=== PATIENT | male | born 1950 | race Caucasian/White ===

== ENCOUNTER 2024-03-09 10:37 | Outpatient (AMB) | payer MEDICARE, SELFPAY ==
--- NOTE | 2024-03-09 10:44 | MHC.PC.OV ---
Vital Signs 03/09/24 10:56 Height 5 ft 8.11 in Weight 202 lb 8 oz BMI 30.7 BP 118/68 Blood Pressure Location Lt brachial Position Sitting Respiration 26 H Pulse 91 Pulse Source Pulse Oximeter Temp 97.9 F Temp Source Oral Pulse Oximetry (%) 93 Oxygen Delivery Method Room Air Intake Visit Reasons: manager net appointment Intake Note: New patient visit. Requesting refill on on medication to Amy. Dr Vaughan was supposed to refill Breo back in January and he never received it. Mortgage Accounting Clerk Required: No Allergies No Known Allergies [No Known Allergies*] Allergy (Verified 03/09/24 10:44) Tobacco use date assessed: 03/09/24 Fall risk assessment: 1 Fall in past year Last assessed Fall Risk: 03/09/24 Dental Screening Dental Screen Date: 03/09/24 Did you have a dental visit in the last 12 months?: No Did you have a dental problem in the last 6 months where you did not have access to dental care?: No Was dental information given to patient?: Patient declined (doesnt have teeth) HPI HPI Comments History of Present Illness Details The patient is a 73-year-old male with a past history hypertension, paroxysmal atrial fibrillation, depression and anxiety, dyslipidemia, COPD with emphysema complicated by chronic hypoxemic respiratory failure on 2 L O2, on nonischemic cardiomyopathy, chronic daily diarrhea and von Hippel-Lindau syndrome who presents for follow-up GI: In the setting of a 6 month history of diarrhea in the patient was hospitalized and underwent an extensive workup which included a CT abdomen and pelvis which showed pneumatosis colon and 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 He underwent MRCP and GI was consulted. MRCP showed focal biliary dilation. No mass lesion was delineated. Ductal dilation isolated segment of the left lower liver with some debris within the left lobe. LFTs unremarkable. Recommended against ERCP by GI. Colonoscopy with normal pathology and biopsy. Saw Dr Barron-repeated MRI-no interval change CV: Follows with [facility]. On eliquis, lipitor 40 mg daily. Denies chest pain, shortness breath 9 nephro: CKD stage 3 Pulmonary: Chronic hypoxemic respiratory failure. On his O2 today though at last visit reported some noncompliance with oxygen therapy at home. He continued free of BH: On sertraline, mirtazapine and hydroxyzine as needed. [facility] Colon[facility] 2022 ROS CONSTITUTIONAL: Denies weight loss, fever and chills. HEENT: Denies changes in vision and hearing. RESPIRATORY: Denies SOB and cough. CV: Denies palpitations and CP GI: Denies abdominal pain, nausea, vomiting and diarrhea. : Denies dysuria and urinary frequency. MSK: Denies new myalgia and joint pain. SKIN: Denies rash and pruritus. NEUROLOGICAL: Denies headache PSYCHIATRIC: Denies recent changes in mood. PHYSICAL EXAM: GENERAL: Alert and oriented x 3. NAD EYES: EOMI. Anicteric. HENT: Moist mucous membranes. No scleral icterus. No cervical lymphadenopathy. LUNGS: Clear to auscultation bilaterally. CARDIOVASCULAR: Regular rate and rhythm. No murmur. No JVD. ABDOMEN: Soft, non-tender +bs EXTREMITIES: No edema. Non-tender. SKIN: No rashes or lesions. Warm. NEUROLOGIC: No focal neurological deficits. CN II-XII grossly intact PSYCHIATRIC: Cooperative. Appropriate mood and affect [facility] Medical History VHL (von Hippel-Lindau syndrome) Smoking hx Seasonal allergies Obesity, Class I, BMI 30.0-34.9 (see actual BMI) Macular degeneration Emphysema lung Dilation of common bile duct Depression Chronic kidney disease Afib Anxiety Abnormal gall bladder diagnostic imaging Surgical History H/O colonoscopy Social History Housing: Apartment Patient Tobacco Use Status: Former Tobacco user Cigarette Packs Per Day: 3 Years Smoked: 50 e-Cigarette/Vaping Use: Never Used Second Hand Smoke Exposure: No service: No Current occupational status: retired Cognitive needs: No Hearing needs: No Vision needs: Yes (legally blind) Questionnaire PHQ-9 Over the last 2 weeks, how often have you been bothered by any of the following problems? 1. Little interest or pleasure in doing things: not at all 2. Feeling down, depressed, or hopeless: several days 3. Trouble falling or staying asleep, or sleeping too much: not at all 4. Feeling tired or having little energy: nearly every day 5. Poor appetite or overeating: not at all 6. Feeling bad about yourself - or that you are a failure or have let yourself or your family down: not at all 7. Trouble concentrating on things, such as reading the newspaper or watching television: several days 8. Moving or speaking so slowly that other people could have noticed. Or the opposite - being so fidgety or restless that you have been moving around a lot more than usual: not at all 9. Thoughts that you would be better off or of hurting yourself in some way: not at all Total score: 5 Depression Screening Interpretation: Positive Depression Screening Follow-up: Existing condition Depression Screening Done: Yes 31757 - PHQ-9 Billing: Yes Source: Developed by Drs. Néstor Slaughter, Isa Cullen, Kraeem Alejandre and colleagues, with an educational elma from [employer]. Thrive Questionnaire Date Thrive assessed: 03/09/24 I am a: Patient What is your living situation today?: I have a steady place to live Within the past 12 months, did the food you bought not last and you didn't have the money to get more?: Never true Within the past 12 months, did you worry whether your food would run out before you got money to buy more?: Never true Do you have trouble paying for medicines?: Yes Do you have trouble getting transportation to medical appointments?: No Do you have trouble paying your heating and electricity bill?: No Do you have trouble taking care of your child, family member or friend?: No Do you have trouble with day-to-day activities such as bathing, preparing meals, shopping, managing finances, etc.?: No Are you currently unemployed and looking for a job?: I choose not to answer this question Are you interested in more education?: No Please select the resources that you would like help with: None Currently or been in a relationship where the following occur: No concerns reported THRIVE Score: 0 AUDIT C Alcohol Use Questionnaire (AUDIT-C) 1. How often do you have a drink containing alcohol?: Never (past quit about 1987) 3. How often do you have six or more drinks on one occasion?: Never Total Score: 0 JAMES-7 AMB Questionnaire JAMES-7 Date JAMES - 7 assessed: 03/09/24 Feeling nervous, anxious, or on edge: 1 = Several days Not being able to stop or control worryin = Not at all Worrying too much about different things: 0 = Not at all Trouble relaxin = Not at all Being so restless that it is hard to sit still: 0 = Not at all Becoming easily annoyed or irritable: 0 = Not at all Feeling afraid as if something awful might happen: 0 = Not at all Total JAMES-7 score (0-4 normal; 5-9 mild; 10-14 moderate; 15-21 severe): 1 Source: Developed by Drs. Néstor Slaughter, Isa Cullen, Kareem Alejandre and colleagues, with an educational elma from [employer]. JAMES-7 Assessment Billing JAMES-7 Assessment Tool: JAMES-7 Assessment 56443 Physical exam (Primary Care) Vital Signs: Last Vital Signs Temp 97.9 F 03/09/24 10:56 Pulse 91 03/09/24 10:56 Resp 26 H 03/09/24 10:56 BP 118/68 03/09/24 10:56 Pulse Ox 93 03/09/24 10:56 Oxygen Delivery Method Room Air 03/09/24 10:56 BMI result Body Mass Index 30.7 Tobacco/Smoking Status: Tobacco use Status Tobacco use date assessed 03/09/24 03/09/24 11:04 Patient Tobacco Use Status Former Tobacco user 03/09/24 11:35 e-Cigarette/Vaping Use Never Used 03/09/24 11:35 PHQ-9: PHQ-9 Score PHQ-9: Total score 5 03/12/24 09:41 Depression Screening Interpretation: Positive Depression Screening Follow-up: Existing condition Thrive Assessment: Date of Thrive Assessment Date Thrive assessed 03/09/24 03/09/24 11:04 Currently or been in a relationship where the following occur: No concerns reported Coding Level of Care Code Est Pt Level 5 (80353) Complex EM visit Add On G2211 Diagnoses Anxiety F41.9 Paroxysmal atrial fibrillation I48.0 Atrial fibrillation type: paroxysmal Pulmonary emphysema, unspecified emphysema type J43.9 Emphysema type: unspecified VHL (von Hippel-Lindau syndrome) Q85.83 Additional Codes JAMES-7 Assessment Billing - JAMES-7 Assessment Tool: JAMES-7 Assessment 77514 ([id number]) Time Spent (min) 55 Assessment & Plan Assessment & Plan (1) Anxiety: Code(s): F41.9 - Anxiety disorder, unspecified Category: Medical Plan: stable on current medications (2) Afib: Code(s): I48.91 - Unspecified atrial fibrillation Category: Medical Qualifiers: Atrial fibrillation type: paroxysmal Qualified Code(s): I48.0 - Paroxysmal atrial fibrillation Plan: Continue follow up with cardiology. No chest pain. (3) Emphysema lung: Code(s): J43.9 - Emphysema, unspecified Category: Medical Qualifiers: Emphysema type: unspecified Qualified Code(s): J43.9 - Emphysema, unspecified Plan: No exacerbation. Follows with pulmonary (4) VHL (von Hippel-Lindau syndrome): Code(s): Q85.83 - Von Hippel-Lindau syndrome Category: Medical Plan: Stopped follow up with [facility]. Orders: Orders Complete Blood Count Auto Diff 03/09/24 F32.A - Depression, unspecified, F41.9 - Anxiety disorder, unspecified, I48.91 - Unspecified atrial fibrillation, N18.9 - Chronic kidney disease, unspecified Lipid Panel 03/09/24 F32.A - Depression, unspecified, F41.9 - Anxiety disorder, unspecified, I48.91 - Unspecified atrial fibrillation, N18.9 - Chronic kidney disease, unspecified TSH reflex Free T4 03/09/24 F32.A - Depression, unspecified, F41.9 - Anxiety disorder, unspecified, I48.91 - Unspecified atrial fibrillation, N18.9 - Chronic kidney disease, unspecified Comprehensive Met. Panel 03/09/24 F32.A - Depression, unspecified, F41.9 - Anxiety disorder, unspecified, I48.91 - Unspecified atrial fibrillation, N18.9 - Chronic kidney disease, unspecified Hemoglobin A1c 03/09/24 F32.A - Depression, unspecified, F41.9 - Anxiety disorder, unspecified, I48.91 - Unspecified atrial fibrillation, N18.9 - Chronic kidney disease, unspecified Medications: New Eliquis (apixaban) 5 mg PO BID 180 tabs 3RF NS lisinopril 10 mg PO DAILY 90 tabs 3RF metoprolol succinate ER 50 mg PO DAILY 90 tabs 3RF mirtazapine 30 mg PO BEDTIME 90 tabs 3RF sertraline 100 mg PO DAILY 90 tabs 3RF nnhtrelcilf-onpjqweoc-hvhupywx 200-62.5-25 mcg (Trelegy Ellipta) 1 inh inhalation DAILY 3 ea 3RF Ventolin HFA 90 mcg/actuation (albuterol sulfate) 2 puffs inhalation Q4H 18 grams 3RF 90 days NS atorvastatin 40 mg PO DAILY 90 tabs 3RF fluticasone propionate 50 mcg/actuation 2 sprays intranasal DAILY 3 ea 3RF 90 days hydroxyzine HCl 50 mg PO BID PRN 90 tabs 3RF nausea and vomiting baclofen 10 mg PO BID PRN 180 tabs 3RF back pain
[2024-03-09 10:56] VITALS: BP 118/68; PULSE 91; RESP 26; TEMP 36.6; O2SAT 93; BMI 30.7
== END 2024-03-09 11:43 | disposition home or self-care (01) ==
PROVIDERS: PCP Internal Medicine; Visit Provider Internal Medicine
DX: I48.0 Paroxysmal atrial fibrillation (principal); F41.9 Anxiety disorder, unspecified; J43.9 Emphysema, unspecified; Q85.83 Von Hippel-Lindau syndrome

== ENCOUNTER → 2024-03-09 10:37 | Outpatient (BNVA) | payer MEDICARE, OTHER, SELFPAY | PROVIDERS: PCP Internal Medicine; Visit Provider Internal Medicine | DX: F41.9 Anxiety disorder, unspecified (principal); F32.A Depression, unspecified; I48.0 Paroxysmal atrial fibrillation; J43.9 Emphysema, unspecified; Q85.83 Von Hippel-Lindau syndrome; Z79.899 Other long term (current) drug therapy | CPT/HCPCS: 96127; 99212 ==

== ENCOUNTER 2024-03-09 12:10 | Outpatient (REF) | payer MEDICARE, SELFPAY ==
[2024-03-09 14:21] LABS: MANUAL DIFF FLAG NO
[2024-03-09 14:33] LABS: Basophils Percent Auto 0.6 % (0-2); Eosinophils Absolute Auto 0.2 X10*3/uL (0.0-0.4); Eosinophils Percent Auto 2.6 % (0-4); Hematocrit 48.7 % (42.0-52.0); Hemoglobin 15.6 g/dl (14.0-18.0); Imm Gran Abs Auto 0.04 X10*3/uL (0.00-0.03); Imm Gran Pct Auto 0.6 % (0.0-0.4); Lymphocytes Absolute Auto 0.9 X10*3/uL (1.2-4.9); Lymphocytes Percent Auto 12.8 % (20-40); Mean Corpuscular Volume 87.3 fL (80.0-98.0); Mean Platelet Volume 12.6 fL (9.4-12.4); Monocytes Absolute Auto 0.9 X10*3/uL (0.1-1.2); Monocytes Percent Auto 13.8 % (2-11); Neutrophils Absolute Auto 4.6 x10*3/uL (2.0-8.3); Neutrophils Percent Auto 69.6 % (45-73); Platelet Count 155 X10*3/uL (160-400); Red Blood Count 5.58 X10*6/uL (4.60-5.80); Red Cell Distribution Width 15.6 % (11.0-16.0); White Blood Count 6.7 X10*3/uL (4.8-10.8)
[2024-03-09 14:39] LABS: Estimated Average Glucose 123 mg/dL; Hemoglobin A1C 163.1175 umol/L; Hemoglobin A1c % 5.9 % (<6.0); Total Hemoglobin (HGBA1C) 3948.7998 umol/L
[2024-03-09 14:51] LABS: Alanine Aminotransferase 19 U/L (0-40); Albumin Level 4.7 g/dL (3.5-5.0); Alkaline Phosphatase 113 U/L (39-117); Anion Gap 16 (12-20); Aspartate Amino Transferase 21 U/L (5-37); Bilirubin Total 0.5 mg/dL (0.0-1.0); Blood Urea Nitrogen 41 mg/dL (9-16); Calcium 10.3 mg/dL (8.4-10.2); Carbon Dioxide 26 mmol/L (22-29); Chloride 105 mmol/L (96-108); Cholesterol 122 mg/dL (<200); Estimated Glomerular Filt Rate 33; Glucose Random 112 mg/dL (60-115); HDL Cholesterol 32 mg/dL (>40); LDL Cholesterol Calculated 47 mg/dL (<100); Potassium 5.3 mmol/L (3.3-5.1); Sodium 142 mmol/L (135-145); Total Protein 8.2 g/dL (6.5-8.0); Triglycerides 216 mg/dL (<150)
[2024-03-09 15:01] LABS: TSH reflex Free T4 2.21 uIU/mL (0.32-4.0)
== END 2024-03-09 12:11 | disposition home or self-care (01) ==
LOC: HO.WFDLDS 12:10
PROVIDERS: Visit Provider Internal Medicine
DX: I48.91 Unspecified atrial fibrillation (principal); F32.A Depression, unspecified; F41.9 Anxiety disorder, unspecified; N18.9 Chronic kidney disease, unspecified
CPT/HCPCS: 36415; 80053; 80061; 83036; 84443; 85025; 96127; 99212

== ENCOUNTER 2024-08-10 10:20 | Outpatient (AMB) | payer MEDICARE, MEDICAID, SELFPAY ==
--- NOTE | 2024-08-10 10:49 | A.OFFPC_ITS ---
Vital Signs 08/10/24 11:06 08/10/24 11:09 Height 5 ft 8.11 in BP 70/48 L 80/56 L Blood Pressure Location Rt brachial Lt brachial Position Sitting Sitting Respiration 22 H Pulse 77 Pulse Source Pulse Oximeter Pulse Oximetry (%) 98 Oxygen Delivery Method Room Air Intake Visit Reasons: awv Intake Note: Medical annual wellness. Had a CT lung scan on 08/03/24 at [facility] Delivery Department Supervisor Required: No Allergies No Known Allergies [No Known Allergies*] Allergy (Verified 08/10/24 10:49) Medication List - Last Reconciled 08/22/24 by Nita Harrison MD atorvastatin 40 mg PO DAILY baclofen 10 mg PO BID PRN doxycycline hyclate 100 mg PO BID Eliquis (apixaban) 5 mg PO BID NS fluticasone propionate 50 mcg/actuation 2 sprays intranasal DAILY 90 days leakiqkzufa-geehqrkxm-bunqcbca 200-62.5-25 mcg (Trelegy Ellipta) 1 inh inhalation DAILY hydroxyzine HCl 50 mg PO BID PRN lisinopril 10 mg PO DAILY metoprolol succinate ER 50 mg PO DAILY mirtazapine 30 mg PO BEDTIME sertraline 150 mg (1.5 x 100 mg) PO DAILY Ventolin HFA 90 mcg/actuation (albuterol sulfate) 2 puffs inhalation Q4H 90 days NS vitamins A,C,F-jiux-dbwqya 4,296 mcg-226 mg-90 mg (PreserVision AREDS) 1 cap PO BID Tobacco use date assessed: 08/10/24 Fall risk assessment: No Falls in past year Last assessed Fall Risk: 08/10/24 Dental Screening Dental Screen Date: 03/09/24 HPI HPI Comments History of Present Illness Details The patient is a 73-year-old male with a past history hypertension, paroxysmal atrial fibrillation, depression and anxiety, dyslipidemia, COPD with emphysema complicated by chronic hypoxemic respiratory failure on 2 L O2, on nonischemic cardiomyopathy, chronic daily diarrhea and von Hippel-Lindau syndrome who presents for [facility] GI: In the setting of a 6 month history of diarrhea in 2022 the patient was hospitalized and underwent an extensive workup which included a CT abdomen and pelvis which showed pneumatosis colon and 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 He underwent MRCP and GI was consulted. MRCP showed focal biliary dilation. No mass lesion was delineated. Ductal dilation isolated segment of the left lower liver with some debris within the left lobe. LFTs unremarkable. Recommended against ERCP by GI. Colonoscopy with normal pathology and biopsy. Saw Dr Barron-repeated MRI-no interval change CV: Follows with [facility] Cardiology. On eliquis, lipitor 40 mg daily, lisinopril, toprol. Denies chest pain, shortness breath. Nephro: CKD stage 3 Pulmonary: Chronic hypoxemic respiratory failure on 02 therapy. On trelegy Follows with Dr Vaughan. BH: On sertraline, mirtazapine and hydroxyzine as needed. Follows with [facility] Colonoscopy 2022 HRA declined to fully complete Care team reviewed Meds reconciled ROS CONSTITUTIONAL: Denies weight loss, fever and chills. HEENT: Denies changes in vision and hearing. RESPIRATORY: Denies SOB and cough. CV: Denies palpitations and CP GI: Denies abdominal pain, nausea, vomiting and diarrhea. : Denies dysuria and urinary frequency. MSK: Denies new myalgia and joint pain. SKIN: Denies rash and pruritus. NEUROLOGICAL: Denies headache PSYCHIATRIC: Denies recent changes in mood. PHYSICAL EXAM: GENERAL: Alert and oriented x 3. NAD EYES: EOMI. Anicteric. HENT: Moist mucous membranes. No scleral icterus. No cervical lymphadenopathy. LUNGS: Coarse bs right, scattered wheeze b/l CARDIOVASCULAR: Regular rate and rhythm. No murmur. No JVD. ABDOMEN: Soft, non-tender +bs EXTREMITIES: No edema. Non-tender. SKIN: No rashes or lesions. Warm. NEUROLOGIC: No focal neurological deficits. CN II-XII grossly intact PSYCHIATRIC: Cooperative. Appropriate mood and affect [facility] Medical History VHL (von Hippel-Lindau syndrome) Smoking hx Seasonal allergies Obesity, Class I, BMI 30.0-34.9 (see actual BMI) Macular degeneration Emphysema lung Dilation of common bile duct Depression Chronic kidney disease Afib Anxiety Abnormal gall bladder diagnostic imaging Surgical History H/O colonoscopy Social History Housing: Apartment Alcohol intake: current Patient Tobacco Use Status: Former Tobacco user Cigarette Packs Per Day: 3 Years Smoked: 50 e-Cigarette/Vaping Use: Never Used Second Hand Smoke Exposure: No service: No Current occupational status: retired Cognitive needs: No Hearing needs: No Vision needs: Yes (legally blind) Questionnaire Thrive Questionnaire Date Thrive assessed: 08/10/24 JAMES-7 AMB Questionnaire JAMES-7 Date JAMES - 7 assessed: 03/09/24 Source: Developed by Drs. Néstor Slaughter, Isa Cullen, Kareem Alejandre and colleagues, with an educational elma from [employer]. Physical exam (Primary Care) Vital Signs: Last Vital Signs Pulse 77 08/10/24 11:06 Resp 22 H 08/10/24 11:06 BP 80/56 L 08/10/24 11:09 Pulse Ox 98 08/10/24 11:06 Oxygen Delivery Method Room Air 08/10/24 11:06 Tobacco/Smoking Status: Tobacco use Status Tobacco use date assessed 08/10/24 08/10/24 11:05 Patient Tobacco Use Status Former Tobacco user 08/10/24 10:50 e-Cigarette/Vaping Use Never Used 08/10/24 10:50 Thrive Assessment: Date of Thrive Assessment Date Thrive assessed 08/10/24 08/10/24 10:50 Coding Level of Care Code Est Pt Level 4 (56777) Diagnoses Medicare annual wellness visit, subsequent Z00.00 VHL (von Hippel-Lindau syndrome) Q85.83 Paroxysmal atrial fibrillation I48.0 Atrial fibrillation type: paroxysmal Pulmonary emphysema, unspecified emphysema type J43.9 Emphysema type: unspecified Assessment & Plan Assessment & Plan (1) Medicare annual wellness visit, subsequent: Code(s): Z00.00 - Encounter for general adult medical examination without abnormal findings Category: Medical Plan: HRA provided to patient he did not complete Blood pressure soft today-advised hydration at home. EKG was performed and reassuring. He is feeing well. Advised if does not feel well then go to ER for evaluation Care team reviewed. medications reconciled (2) VHL (von Hippel-Lindau syndrome): Code(s): Q85.83 - Von Hippel-Lindau syndrome Category: Medical Plan: Previously following with specialist in [place] but declines further follow up there. Continue follow up cardiology, pulmonary (3) Afib: Code(s): I48.91 - Unspecified atrial fibrillation Category: Medical Qualifiers: Atrial fibrillation type: paroxysmal Qualified Code(s): I48.0 - Paroxysmal atrial fibrillation Plan: Rate controlled. continues AC (4) Emphysema lung: Code(s): J43.9 - Emphysema, unspecified Category: Medical Qualifiers: Emphysema type: unspecified Qualified Code(s): J43.9 - Emphysema, unspecified Plan: Concern for right PNA. Doxycycline send. Continue rsp meds and follow up Orders: Orders TSH reflex Free T4 08/10/24 I48.0 - Paroxysmal atrial fibrillation, N18.9 - Chronic kidney disease, unspecified, F41.9 - Anxiety disorder, unspecified, Q8 5.83 - Von Hippel-Lindau syndrome, J43.9 - Emphysema, unspecified Complete Blood Count Auto Diff 08/10/24 I48.0 - Paroxysmal atrial fibrillation, N18.9 - Chronic kidney disease, unspecified, F41.9 - Anxiety disorder, unspecified, Q85.83 - Von Hippel-Lindau syndrome, J43.9 - Emphysema, unspecified Comprehensive Met. Panel 08/10/24 I48.0 - Paroxysmal atrial fibrillation, N18.9 - Chronic kidney disease, unspecified, F41.9 - Anxiety disorder, unspecified, Q85.83 - Von Hippel-Lindau syndrome, J43.9 - Emphysema, unspecified Lipid Panel 08/10/24 I48.0 - Paroxysmal atrial fibrillation, N18.9 - Chronic kidney disease, unspecified, F41.9 - Anxiety disorder, unspecified, Q85.83 - Von Hippel-Lindau syndrome, J43.9 - Emphysema, unspecified Prostate Specific Antigen 08/10/24 I48.0 - Paroxysmal atrial fibrillation, N18.9 - Chronic kidney disease, unspecified, F41.9 - Anxiety disorder, unspecifi ed, Q85.83 - Von Hippel-Lindau syndrome, J43.9 - Emphysema, unspecified Hemoglobin A1c 08/10/24 I48.0 - Paroxysmal atrial fibrillation, N18.9 - Chronic kidney disease, unspecified, F41.9 - Anxiety disorder, unspecified, Q85.83 - Von Hippel-Lindau syndrome, J43.9 - Emphysema, unspecified Medications: New doxycycline hyclate 100 mg PO BID 20 tabs 0RF
[2024-08-10 11:06] VITALS: BP 70/48; PULSE 77; RESP 22; O2SAT 98
[2024-08-10 11:09] VITALS: BP 80/56
--- OUTSIDE RECORDS SUMMARY | 2024-08-10 12:30 | XMS_ITS | Encounter Summary ---
Author Organization [facility] Address [address] [place] [address] Care Team Providers Care Band Sawyer Name Role Phone Nita Harrison MD Primary Care Provider [phone] Reason for Referral * Imaging (Routine) - Authorized Specialty Diagnoses / Procedures Referred By Nasim rogers Referred To Contact Radiology Diagnoses Multiple pulmonary nodules Tobacco abuse Procedures CT Chest wo Contrast (Lung-RADS F/U) Clarice Arce PA [address], [address] [place] [address] Phone: tel: fax: [facility] Referral ID Status Reason Start Date Expiration Date V isits Requested Visits Authorized [id number] Authorized 08/10/2024 08/10/2025 1 1 Reason for Visit * Reason Onset Date Comments Results 08/09/2024 Same Day Lung Sc reening- LR0 Encounter Details Date Type Department Care Team ([facility] Contact Info) Description 08/09/2024 Telephone Lung Screening Program - [facility] [address] [place] [address] Mercedes Meza MA Results (Same Day Lung Screening- LR0) Social History Tobacco Use Types Packs/Day Years Used Date Smoking Tobacco: Former Cigarettes 1 53 1 96 - 2019 Smokeless Tobacco: Former Alcohol Use Standard Drinks/Week Comments Not Currently 0 (1 standard drink = 0.6 oz pur e alcohol) Sex and Gender Information Value Date Recorded Sex Assigned at Male 07/30/2024 8:24 AM EST Legal Sex Male 6:26 PM EST Gender Identity Male 07/30/2024 8:24 AM EST Sexual Orientation Not on file documented as of this encounter Progress Notes * MONICA Gorman - 08/10/2024 10:43 AM ESTAddended by: CLARICE ARCE on: 08/10/2024 10:43 AM Modules accepted: Orders * MONICA Gorman - 08/10/2024 10:38 AM EST LDCT dated August 03, 2024 reviewed. For the patient's lung findings including the patchy groundglass and nodular opacities in the inferior aspect of the right upper lobe, I would recommend a follow-up CT chest in 3 months (October 2024). Results to patient per usual screening protocol. Please also make sure to send an S finding letter to the patient's primary care physician as he hasa heterogeneous left posterior liver lesion which is incompletely characterized, as well as multiple indeterminate right adrenal nodules, both of which are recommended to have an abdominal MRI with and without contrast to further delineate. * Mercedes Meza MA - 08/09/2024 11:18 AM EST Hansel Espinoza: had their LDCT Screening for Lung Cancer on Saturday, August 03, 2024 at [facility]. The radiologist interpreted this as a Lung RADS 0 and therefore requires additional review for recommendations for their next screening. Following this screening, I reached out to the patient to determine if they are experiencing any signs or symptoms that could be related to an infectious or inflammatory process. The patient denies having received treatment for a respiratory infection in the last 8 weeks. They deny experiencing anyrespiratory symptoms such as runny nose, congestion, fever, muscle aches, scratchy/sore throat, postnasal drip, throat clearing, cough, wheezing or increased shortness of breath. Patient states he has no cold symptoms, does not feel unwell . Please review this CT along with the clinical information. Let us know when we should schedule the patient's next Lung Cancer Screening and whether their incidental finding requires any additional communication or instructions. Thank you. documented in this encounter Plan of Treatment Upcoming Encounters Date Type Department Care Team ([facility] st Contact Info) Description 01/18/2025 10:45 AM EDT Office Visit Pulmonolgy - [facility] [address] [place] [address] Kelly Moyer MD [address] [place] [address] Scheduled Orders Name Type Priority Associated Diagnoses Orde r Schedule CT Chest wo Contrast (Lung-RADS F/U) Imaging Routine Multiple pulmonary nodules Tobacco abuse Expected: 10/31/2024, Expires: 08/10/2025 documented as of this encounter Visit Diagnoses Diagnosis Multiple pulmonary nodules- Primary Other diseases of lung, not elsewhere classified Tobacco abuse Tobacco use disorder documented in this encounter Care Teams Band Sawyer Relationship Specialty Start Date End Date Nita Harrison MD [address] [place] [address] [address] [place] [address] PCP - General Internal Medicine 08/28/21 documented as of this encounter
--- OUTSIDE RECORDS SUMMARY | 2024-08-10 12:30 | XMS_ITS | Encounter Summary ---
Author Organization [facility] Address [address] [place] [address] Care Team Providers Care Ic Design Engineer Name Role Phone Nita Harrison MD Primary Care Provider [phone] Reason for Referral * Imaging (Routine) - Closed Specialty Diagnoses / Procedures Referred By Nasim rogers Referred To Contact Radiology Diagnoses Encounter for screening for lung cancer History of tobacco use Procedures CT Lung Screening Micah Reyes MD [address] [address] Phone: tel: fax: [address] [address] Phone: tel: Referral ID Status Reason Start Date Expiration Date Visits Re quested Visits Authorized [id number] Closed 07/15/2024 07/15/2025 1 1 Reason for Visit * Imaging (Routine) - Closed Specialty Diagnoses / Procedures Referred By Contsridevi rogers Referred To Contact Radiology Diagnoses Encounter for screening for lung cancer History of tobacco use Procedures CT Lung Screening Micah Reyes MD [address] [address] Phone: tel: fax: [address] [address] Phone: tel: Referral ID Status Reason Start Date Expiration Date Visits Re quested Visits Authorized [id number] Closed 07/15/2024 07/15/2025 1 1 Encounter Details Date Type Department Care Team (Latest Contact Info) Description 08/03/2024 9:10 AM EST - 08/03/2024 11:59 PM EST Hospital Encounter [facility] CT Scan [address] [place] [address] Encounter for screening for lung cancer; History of tobacco use Discharge Disposition: Home or Self Care Social History Tobacco Use Types Packs/Day Years Used Date Smoking Tobacco: Former Cigarettes 1 53 1 967 2019 Smokeless Tobacco: Former Alcohol Use Standard Drinks/Week Comments Not Currently 0 (1 standard drink = 0.6 oz pur e alcohol) Sex and Gender Information Value Date Recorded Sex Assigned at Male 07/30/2024 8:24 AM EST Legal Sex Male 6:26 PM EST Gender Identity Male 07/30/2024 8:24 AM EST Sexual Orientation Not on file documented as of this encounter Medications at Time of Discharge acetaminophen (TYLENOL 8 HOUR) 650 mg 8 hr tablet Take 1 tablet (650 mg total) by mouth every 8 (eight) hours if needed. ALBUTEROL INHL Inhale 90 mcg by mouth. into the lungs as needed. apixaban (Eliquis) 5 mg tablet Take 1 tablet (5 mg total) by mouth. 04/10/2023 atorvastatin (LIPITOR) 40 mg tablet Take 1 tablet (40 mg total) by mouth 1 (one) time each day. 10/03/2022 fluticasone furoate-vilanter oL (BREO ELLIPTA) 100-25 mcg/dose inhaler See Instructions, INHALE 1 PUFF BY INHALATION ROUTE ONCE DAILY AT THE SAME TIME EACH DAY, # 180 each, 1 Refills, Maintenance, 04/10/23 11:15:00 [facility], 90, INHALE 1 PUFF BY INHALATION ROUTE ONCE DAILY AT THE SAME TIME EACH DAY, 17... 04/10/2023 fluticasone propionate (FLONASE) 50 mcg/actuation nasal spray Administer 2 sprays into affected nostril(s) 1 (one) time each day. fluticasone-umec lidinium-vilante rol (Trelegy Ellipta) 200-62.5-25 mcg inhaler Inhale 1 puff (200 mcg total) by mouth 1 (one) time each day. Rinse mouth with water after use to reduce aftertaste and incidence of candidiasis. Do not swallow. hydrALAZINE (APRESOLINE) 25 mg tablet Take 1 tablet (25 mg total) by mouth 2 (two) times a day. hydroCHLOROthiaz janes (HYDRODIURIL) 50 mg tablet Take 1 tablet (50 mg total) by mouth 2 (two) times a day. lisinopriL (PRINIVIL,ZESTRI L) 5 mg tablet Take 1 tablet (5 mg total) by mouth 1 (one) time each day. metoprolol tartrate (LOPRESSOR) 25 mg tablet Take 1 tablet (25 mg total) by mouth 1 (one) time each day. mirtazapine (REMERON) 30 mg tablet Take 1 tablet (30 mg total) by mouth 1 (one) time each day. 04/16/2023 multivit-min/mary lou georges fumarate (MULTI VITAMIN ORAL) Take by mouth. vit A/vit C/vit E/zinc/copper (ICAPS AREDS ORAL) Take by mouth. vit C/E/Zn/coppr/lut ein/zeaxan (PRESERVISION AREDS-2 ORAL) Take by mouth 2 Times Daily. documented as of this encounter Discharge Disposition Disposition Code Departure Means Destination Home or Self Care documented in this encounter Plan of Treatment Upcoming Encounters Date Type Department Care Team ([facility] st Contact Info) Description 01/18/2025 10:45 AM EDT Office Visit Pulmonolgy - [place] [address] [facility] [address] [facility] [address] [place] [phone] Kelly Moyer MD 175 [facility] [address] [place] [address] documented as of this encounter Procedures Procedure Name Priority Date/Time Associated Diagnosis Comments CT LUNG SCREENING Routine 08/03/2024 9:2 0 AM EST Encounter for screening for lung cancer History of tobacco use documented in this encounter Results * CT Lung Screening (08/03/2024 9:20 AM EST) Anatomical Region Laterality Modality Chest Computed Tomogra phy 08/05/2024 5:15 PM EST Impressions 08/05/2024 5:36 PM EST Multiple groundglass and nodular opacities throughout the inferior aspect of the right upper lobe suspicious for an infectious/inflammatory process. ??Lung RADS 0-incomplete. ??Recommend repeat exam in 4-6 weeks after treatment of any potential infectious etiologies. Heterogeneous left posterior liver lesion, incompletely characterized on this exam. ??Multiple indeterminant right adrenal nodules. ??Abdominal MRI without and with contrast recommended to better characterize these findings. A copy of this report will be provided to the [facility] FIND Program. -------- FINAL REPORT -------- Dictated By: SAMMIE WEI Dictated Date: 08/05/2024 17:15 ET Assigned Physician: SAMMIE WEI Reviewed and Electronically Signed By: SAMMIE WEI Signed Date: 08/05/2024 17:36 ET Workstation ID: [id number] Transcribed By: Self Edit Transcribed Date: 08/05/2024 17:15 ET Narrative 08/05/2024 5:36 PM EST PROCEDURE: Chest CT INDICATION: Lung cancer screening, former smoker, 54 pack year smoking history TECHNIQUE: Chest CT without contrast. Multi planar reformats were created and interpreted. The examination was performed utilizing dose reduction techniques. ??Total DLP 180 COMPARISON: ??No priors available. FINDINGS: LUNGS/PLEURA: Central airways are patent. ??Moderate emphysema. ??Patchy groundglass and nodular opacities are seen throughout the inferior aspect of the right upper lobe. ??Elevated left diaphragm with left basilar atelectasis. ??No pleural effusion or pneumothorax. ??Biapical pleural-parenchymal scarring. MEDIASTINUM: Thyroid gland is unremarkable. No mediastinal or hilar lymphadenopathy. ??Left greater than right atrial dilation. No pericardial effusion. Esophagus is normal. CHEST WALL: No axillary lymphadenopathy or superficial hematoma. UPPER ABDOMEN:Bilateral renal cysts. ??Hepatic steatosis. ??5 cm heterogeneous lesion in the left posterior liver, not well assessed on this exam. ??Multiple indeterminant right adrenal nodules measuring higher than 10 Hounsfield units. BONES: No acute fracture. Scattered degenerative changes seen throughout the bones. Micah Reyes MD IMG CT PROCEDURES Final Result documented in this encounter Visit Diagnoses Diagnosis Encounter for screening for lung cancer History of tobacco use Personal history of tobacco use, presenting hazards to health documented in this encounter Care Teams Ic Design Engineer Relationship Specialty Start Date End Date Nita Harrison MD [address] [place] [id number] PCP - General Internal Medicine 08/28/21 documented as of this encounter
--- OUTSIDE RECORDS SUMMARY | 2024-08-10 12:30 | XMS_ITS | Clinical Summary ---
Author Organization [address] [facility] Address [address] [place] [address] Phone Care Team Providers Care Crab Backer Name Role Phone Nita Harrison MD Primary Care Provider [phone] Allergies No known active allergies Medications apixaban (Eliquis) 5 mg tablet Take 1 tablet (5 mg total) by mouth. 3 Active fluticasone furoate-vilante roL (BREO ELLIPTA) 100-25 mcg/dose inhaler See Instructions, INHALE 1 PUFF BY INHALATION ROUTE ONCE DAILY AT THE SAME TIME EACH DAY, # 180 each, 1 Refills, Maintenance, 04/10/23 11:15:00 [facility] 572, 90, INHALE 1 PUFF BY INHALATION ROUTE ONCE DAILY AT THE SAME TIME EACH DAY, 17... 3 Active atorvastatin (LIPITOR) 40 mg tablet Take 1 tablet (40 mg total) by mouth 1 (one) time each day. 3 09/29/19 26 Active hydroCHLOROthia zide (HYDRODIURIL) 50 mg tablet Take 1 tablet (50 mg total) by mouth 2 (two) times a day. Active fluticasone propionate (FLONASE) 50 mcg/actuation nasal spray Administer 2 sprays into affected nostril(s) 1 (one) time each day. Active multivit-min/fe rrous fumarate (MULTI VITAMIN ORAL) Take by mouth. Activ e sertraline (ZOLOFT) 100 mg tablet Take 1 tablet (100 mg total) by mouth 1 (one) time each day. 1 Active hydrALAZINE (APRESOLINE) 25 mg tablet Take 1 tablet (25 mg total) by mouth 2 (two) times a day. Active metoprolol tartrate (LOPRESSOR) 25 mg tablet Take 1 tablet (25 mg total) by mouth 1 (one) time each day. Active lisinopriL (PRINIVIL,ZESTR IL) 5 mg tablet Take 1 tablet (5 mg total) by mouth 1 (one) time each day. Active mirtazapine (REMERON) 30 mg tablet Take 1 tablet (30 mg total) by mouth 1 (one) time each day. 3 Active acetaminophen (TYLENOL 8 HOUR) 650 mg 8 hr tablet Take 1 tablet (650 mg total) by mouth every 8 (eight) hours if needed. Active ALBUTEROL INHL Inhale 90 mcg by mouth. into the lungs as needed. Active vit C/E/Zn/coppr/alissa tein/zeaxan (PRESERVISION AREDS-2 ORAL) Take by mouth 2 Times Daily. Active fluticasone-ume clidinium-vilan terol (Trelegy Ellipta) 200-62.5-25 mcg inhaler Inhale 1 puff (200 mcg total) by mouth 1 (one) time each day. Rinse mouth with water after use to reduce aftertaste and incidence of candidiasis. Do not swallow. Active vit A/vit C/vit E/zinc/copper (ICAPS AREDS ORAL) Take by mouth. Activ e Active Problems Problem Noted Date Diagnosed Date Hypertension 12/17/2021 Cardiomyopathy 09/21/2021 Overview (04/07/2024): Last Assessment & Plan: Echocardiogram while hospitalized for A. fib disclosed mildly reduced left ventricular systolic function. This is highly suspicious for a tachycardia induced cardiomyopathy. Nonetheless given his risk factors I do think that some evaluation for coronary artery disease and ischemia is warranted. We will make arrangements for pharmacologic nuclear stress test. AAA (abdominal aortic aneurysm) 09/21/2021 Overview (04/07/2024): Last Assessment & Plan: Given his age and smoking history screening ultrasound for abdominal aortic aneurysm will be arranged Dyslipidemia 09/21/2021 Overview (04/07/2024): Last Assessment & Plan: Most recent LDL was 207. He meets criteria for statin therapy for primary prevention. I will start atorvastatin 40 mg a day and we will plan to repeat his lipid profile in 3 to 6 months. Atrial fibrillation with RVR 09/20/2021 Overview (04/07/2024): Last Assessment & Plan: Hansel has longstanding persistent atrial fibrillation with recent hospitalization for rapid A. fib. We had a long discussion regarding the pathophysiology of atrial fibrillation's and management options. Given the chronicity of his atrial fibrillation and likely correlation to his pulmonary disease I think that a rhythm control strategy would likely be ineffective and would only be a last resort heart rates at rest are at a general goal of around 80. I received his Holter monitor results after his appointment and this discloses acceptable ventricular rate control. He should continue on his current dose of metoprolol. At this point I would continue him on Coumadin for anticoagulation otherwise we will plan to discuss with him options for alternatives at his next office visit. I noted his most recent creatinine was 1.1. COPD exacerbation 09/20/2021 Dyspnea 09/20/2021 Overview (04/07/2024): Last Assessment & Plan: Longstanding emphysema now on home oxygen. He has not had regular follow-up with pulmonary. Will arrange for this to be done. Encounters Date Type Department Care Team Description 08/09/2024 Telephone Lung Screening Program - [place] [address] [phone] Mercedes Meza [place] Results (Same Day Lung Screening- LR0) 08/03/2024 9:10 AM EST - 08/03/2024 11:59 PM EST Hospital Encounter [facility] CT Scan [address] [place] [phone] Encounter for screening for lung cancer; History of tobacco use Discharge Disposition: Home or Self Care 08/03/2024 9:00 AM EST Office Visit Lung Screening Program - [place] 299 [facility] [address] [place] [phone] Sabrina Beaver NP Encounter for screening for malignant neoplasm of lung in former smoker who quit in past 15 years with 30 pack year history or greater (Primary Dx); Chronic obstructive pulmonary disease, unspecified COPD type ([facility]/HCC) 07/06/2024 9:45 AM EST Office Visit Pulmonolgy - [place] [address] [facility] [address] [place] [address] Kelly Moyer MD Chronic obstructive pulmonary disease, unspecified COPD type ([facility]/HCC) (Primary Dx); Hypoxemia from Last 3 Months Immunizations Name Administration Dates Next Due Influenza Quadravalent, 0.5m l (Fluzone High-dose) 65yo and older 03/10/2023 Influenza trivalent, with pr eservative (Fluzone; Afluria) 6mo and older 03/07/2021,03/14/2020,03/03/2019,03/04,03/10/2017,03/12/2016,04/09/2010 Pneumococcal conjugate 13 va lent (Prevnar 13, PCV13) 2mo and older 04/03/2018 Pneumococcal conjugate 20 va lent (Prevnar 20, PCV 20) 2mo and older 05/23/2023 Pneumococcal polysaccharide 23 valent (Pneumovax 23) 2yo and older 03/14/2020 Tdap Tetanus diptheria acell ular pertussis (Boostrix; Adacel) 7yo and older 05/23/2023 Medical History Medical History Date Comments COPD exacerbation ([facility]) DX:C OPD exacerbation ([facility]) Dyspnea DX:Dyspnea Essential hypertension DX:Essent ial hypertension Family History Medical History Relation Name Comments Lung cancer Neg Hx Social History Tobacco Use Types Packs/Day Years Used Date Smoking Tobacco: Former Cigarettes 1 53 1 967 - 2019 Smokeless Tobacco: Former Tobacco Cessation:Counseling Given: Not Answered Alcohol Use Standard Drinks/Week Comments Not Currently 0 (1 standard drink = 0.6 oz pur e alcohol) Sex and Gender Information Value Date Recorded Sex Assigned at Male 07/30/2024 8:24 AM EST Legal Sex Male 6:26 PM EST Gender Identity Male 07/30/2024 8:24 AM EST Sexual Orientation Not on file Obstetrics History Last Filed Vital Signs Vital Sign Reading Time Taken Comments Blood Pressure 110/78 07/06/2024 9:55 AM EST Pulse 74 07/06/2024 9:55 AM EST Temperature 36.3 ??C (97.3 ??F) 08/03/2024 8:52 AM ES T Respiratory Rate 20 07/06/2024 9:55 AM EST Oxygen Saturation 95% 07/06/2024 9:55 AM EST Inhaled Oxygen Concentration - - Weight 91.2 kg (201 lb) 07/06/2024 9:55 AM EST Height 175.3 cm (5' 9 ) 07/06/2024 9:55 AM EST Body Mass Index 29.68 07/06/2024 9:55 AM EST Plan of Treatment Upcoming Encounters Date Type Department Care Team (Late st Contact Info) Description 01/18/2025 10:45 AM EDT Office Visit Pulmonolgy - [place] [address] [facility] [address] [place] [phone] Kelly Moyer MD [address] [facility] [address] [place] [address] Health Maintenance Due Date Last Done Comments Zoster Vaccines (1 of 2) 09/22/2001 RSV Immunization Patients 60+ Years Old (1 - Risk 60-74 years 1-dose series) 2011 Cholesterol Screening (Lipid Panel) 05/19/2022 Colorectal Cancer Screening: Colonoscopy 05/19/2022 Depression Screening 05/19/2022 Falls Risk Assessment 05/19/2022 Hepatitis C Screening 05/19/2022 Hypertension/CHF/CAD Annual BMP Blood Test 05/19/2022 11/03/2020, 02/17/2020 Medicare Annual Wellness Visit 05/19/2022 Social Influencers of Health Screening 05/19/2022 COVID-19 Vaccine ( season) 2024 04/03/2023, 04/09/2021, 09/26/2020, Additional history exists Lung Cancer Screening (Low Dose CT) 08/03/2025 08/03/2024 DTaP,Tdap,and Td Vaccines (2 - Td or Tdap) 05/23/2033 05/23/2023 Pneumococcal Vaccine: 50+ Years Completed 05/23/2023, 03/14/2020, 04/03/2018 Influenza Vaccine Completed 03/11/2024, , 03/07/2021, Additional history exists HIB Vaccines Aged Out No longer eligi ble based on patient's age to complete this topic HPV Vaccines Aged Out No longer eligi ble based on patient's age to complete this topic Hepatitis A Vaccines Aged Out No long er eligible based on patient's age to complete this topic Hepatitis B Vaccines Aged Out No long er eligible based on patient's age to complete this topic IPV Vaccines Aged Out No longer eligi ble based on patient's age to complete this topic MMR Vaccines Aged Out No longer eligi ble based on patient's age to complete this topic Meningococcal ACWY Vaccine Aged Out N o longer eligible based on patient's age to complete this topic Meningococcal B Vacine Aged Out No lo nger eligible based on patient's age to complete this topic RSV Immunization Patients Under 20 months Aged Out No longer eligible based on patient's age to complete this topic Varicella Vaccines Aged Out No longer eligible based on patient's age to complete this topic Procedures Procedure Name Priority Date/Time Associated Diagnosis Comments CT LUNG SCREENING Routine 08/03/2024 9:2 0 AM EST Encounter for screening for lung cancer History of tobacco use from Last 3 Months Results * CT Lung Screening (08/03/2024 9:20 [...] this report will be provided to the [facility] Program. -------- FINAL REPORT -------- Dictated By: SAMMIE WEI Dictated Date: 08/05/2024 17:15 ET Assigned Physician: SAMMIE WEI Reviewed and Electronically Signed By: SAMMIE WEI Signed Date: 08/05/2024 17:36 ET Workstation ID: [id number] Transcribed By: Self Edit Transcribed Date: 08/05/2024 [...] seen throughout the bones. Micah Reyes MD IM CT PROCEDURES Final Result from Last 3 Months Insurance MEDICARE MEDICAID - [place] Care Teams Crab Backer Relationship Specialty Start Date End Date Nita Harrison MD [address] [place] [phone] PCP - General Internal Medicine 08/28/21
--- OUTSIDE RECORDS SUMMARY | 2024-08-10 12:30 | XMS_ITS | Encounter Summary ---
Author Organization [facility] Address [address] [place] [address] Care Team Providers Care Supervisor Tower Name Role Phone Nita Harrison MD Primary Care Provider [phone] Reason for Visit * Reason Comments SDMV * Consultation (Routine) - Closed Specialty Diagnoses / Procedures Referred By Contac t Referred To Contact Thoracic Surgery Diagnoses Chronic obstructive pulmonary disease, unspecified COPD type (CMS/HCC) Kelly Moyer MD 175 [facility] [address] [place] [address] Phone: tel: fax: Lung Screening Program - [place] 299 [facility] [address] [place] [address] Phone: tel: fax: Referral ID Status Reason Start Date Expiration Date V isits Requested Visits Authorized [id number] Closed Specialty Services Required 07/06/2024 07/06/2025 1 1 Encounter Details Date Type Department Care Team ([facility] st Contact Info) Description 08/03/2024 9:00 AM EST Office Visit Lung Screening Program - [place] 299 [facility] [address] [place] [address] Sabrina Beaver NP 299 [facility] [address] [place] [address] Encounter for screening for malignant neoplasm of lung in former smoker who quit in past 15 years with 30 pack year history or greater (Primary Dx); Chronic obstructive pulmonary disease, unspecified COPD type (CMS/HCC) Social History Tobacco Use Types Packs/Day Years Used Date Smoking Tobacco: Former Cigarettes 1 53 1 967 2019 Smokeless Tobacco: Former Tobacco Cessation:Counseling Given: [...] on file documented as of this encounter Last Filed Vital Signs Vital Sign Reading Time Taken Comments Blood Pressure - - Pulse - - Temperature 36.3 ??C (97.3 ??F) 08/03/2024 8:52 AM ES T Respiratory Rate - - Oxygen Saturation - - Inhaled Oxygen Concentration - - Weight - - Height - - Body Mass Index - - documented in this encounter Progress Notes * Sabrina Beaver NP - 08/03/2024 9:00 AM EST Images from the original note were not included. Lung Cancer Screening Program Shared Decision Making Visit Patient name: Hansel Espinoza : 1950 Date of Visit: 08/03/2024 Care Team Referring Provider: Kelly Moyer MD PCP: Nita Harrison MD Mechanical Engineering Intern: Isra Moyer MD History of Present Illness Mr. Espinoza is a 73 y.o. male who patient presents to the Lung Cancer Screening Program at [facility] for his Shared Decision Making visit. At time of this visit the patient denies any signs or symptoms concerning for active lung cancer including new or worsening cough, hemoptysis, significant chest pain, significant dyspnea, or unintentional weight loss. He denies any recent respiratory illnesses or hospitalizations for a respiratory illness. He denies any CT scan of the chest in the past year. Past Medical History: Diagnosis Date COPD exacerbation (CMS/HCC) DX:COPD exacerbation (HCC) Dyspnea DX:Dyspnea Essential hypertension DX:Essential hypertension Patient Active Problem List Diagnosis Atrial fibrillation with RVR (CMS/HCC) Cardiomyopathy (CMS/HCC) AAA (abdominal aortic aneurysm) (CMS/HCC) Hypertension Dyslipidemia COPD exacerbation (CMS/HCC) Dyspnea No Known Allergies Current Outpatient Medications Medication Sig Dispense Refill acetaminophen (TYLENOL 8 HOUR) 650 mg 8 hr tablet Take 1 tablet (650 mg total) by mouth every 8 (eight) hours if needed. ALBUTEROL INHL Inhale 90 mcg by mouth. into the lungs as needed. apixaban (Eliquis) 5 mg tablet Take 1 tablet (5 mg total) by mouth. atorvastatin (LIPITOR) 40 mg tablet Take 1 tablet (40 mg total) by mouth 1 (one) time each day. fluticasone furoate-vilanteroL (BREO ELLIPTA) 100-25 mcg/dose inhaler See Instructions, INHALE 1 PUFF BY INHALATION ROUTE ONCE DAILY AT THE SAME TIME EACH DAY, # 180 each, 1 Refills, Maintenance, 04/10/23 11:15:00 [facility], 90, INHALE 1 PUFF BY INHALATION ROUTE ONCE DAILY AT THE SAME TIME EACH DAY, 17... (Patient not taking: Reported on 07/06/2024) fluticasone propionate (FLONASE) 50 mcg/actuation nasal spray Administer 2 sprays into affected nostril(s) 1 (one) time each day. gjdfbigbfkc-mlftklnqjwjm-fluwdnkmtk (Trelegy Ellipta) 200-62.5-25 mcg inhaler Inhale 1 puff (200 mcg total) by mouth 1 (one) time each day. Rinse mouth with water after use to reduce aftertaste and incidence of candidiasis. Do not swallow. hydrALAZINE (APRESOLINE) 25 mg tablet Take 1 tablet (25 mg total) by mouth 2 (two) times a day. hydroCHLOROthiazide (HYDRODIURIL) 50 mg tablet Take 1 tablet (50 mg total) by mouth 2 (two) times aday. lisinopriL (PRINIVIL,ZESTRIL) 5 mg tablet Take 1 tablet (5 mg total) by mouth 1 (one) time each day. metoprolol tartrate (LOPRESSOR) 25 mg tablet Take 1 tablet (25 mg total) by mouth 1 (one) time eachday. mirtazapine (REMERON) 30 mg tablet Take 1 tablet (30 mg total) by mouth 1 (one) time each day. multivit-min/ferrous fumarate (MULTI VITAMIN ORAL) Take by mouth. sertraline (ZOLOFT) 100 mg tablet Take 1 tablet (100 mg total) by mouth 1 (one) time each day. vit A/vit C/vit E/zinc/copper (ICAPS AREDS ORAL) Take by mouth. vit C/E/Zn/coppr/lutein/zeaxan (PRESERVISION AREDS-2 ORAL) Take by mouth 2 Times Daily. No current facility-administered medications for this visit. Social History Tobacco Use Smoking status: Former Current packs/day: 0.00 Average packs/day: 1 pack/day for 53.0 years (53.0 ttl pk-yrs) Types: Cigarettes Start date: 1966 Quit date: 2019 Years since quittin.1 Smokeless tobacco: Former Substance Use Topics Alcohol use: Not Currently Drug use: Never Social History Social History Narrative Not on file Family History Problem Relation Name Age of Onset Lung cancer Neg Hx Physical Exam Physical Exam Constitutional: Appearance: Normal appearance. HENT: Head: Normocephalic and atraumatic. Neurological: General: No focal deficit present. Mental Status: He is alert and oriented to person, place, and time. Psychiatric: Mood and Affect: Mood normal. Behavior: Behavior normal. Assessment and Plan: Mr. Espinoza is a 73 y.o. male, former smoker, with a 53 pack-year total. The patient was determined to be eligible for LDCT scan given their age, tobacco history, and current asymptomatic state of health. All of the patient's questions were answered and understood at time of this visit. The patient wishes to proceed with Lung Cancer Screening at [facility]. This patient has a poor functional status based on daily O2 use. However, upon further questioning they state they are able to lay flat for over an hour and can do so without significant dyspnea. I had a juana conversation with the patient that if an early-stage lung cancer was found they would likely not be a candidate for surgical resection, but they may be a candidate for definitive radiation.Therefore, we will proceed with lung cancer screening as the patient may still be a candidate for treatment of an early stage lung cancer. Should the patient's functional or medical status deteriorate further and is no longer a candidate for definitive lung cancer treatment, then screening can be di scontinued at that time. The patient will be having their first LDCT today following this visit. Please be aware that primary care physicians are responsible for all incidental findings that may be found on screening LDCT scans. Patient Information / Education The benefits and risks of lung cancer screening were discussed with the patient including but not limited to oncology outcomes, false-positives/negatives, over- diagnosis, potential need for further testing and/or procedures, incidental findings, and radiation exposure. The patient was educated on the potential management decisions for suspicious findings potentially found on the screening LDCT scans. Any patient with a Lung- RADS score 4 will be reviewed by a multidisciplinary team at [facility] to form a plan of action in regards to the specific suspicious finding. If any further work-up is warranted for a suspicious lung nodule finding this will be followed up by the our program in conjunction with the Thoracic Surgery office at [facility]. The patient, referring physician, and primary care physician will be notified of the LDCT scan results and associated plan. Patient educated that their primary care physician will be responsible for all incidental findings found on screening LDCT scans. Patient educated on the importance of adherence to their personalized lung cancer-screening regimen. Smoking Cessation Smoking cessation resources were made available to patient during this visit. Sabrina Beaver NP [facility] Lung Cancer Screening Program 299 [facility], [address] [address] documented in this encounter Plan of Treatment Upcoming Encounters Date Type Department Care Team (Late st Contact Info) Description 01/18/2025 10:45 AM EDT Office Visit Pulmonolgy - [place] 175 [facility] [address] [place] [address] Klely Moyer MD 175 [facility] [address] [place] [address] documented as of this encounter Visit Diagnoses Diagnosis Encounter for screening for malignant neoplasm of lung in former smoker who quit in past 15 years with 30 pack year history or greater- Primary Chronic obstructive pulmonary disease, unspecified COPD type (CMS/HCC) documented in this encounter Orders Outpatient Referral Count Last Ordered Date Fir st Ordered Date AMB REFERRAL TO [facility] LUNG SCREENING PROGRAM 1 08/03/2024 documented in this encounter Care Teams Supervisor Tower Relationship Specialty Start Date End Date Nita Harrison MD [address] [place] [address] PCP - General Internal Medicine 08/28/21 documented as of this encounter
== END 2024-08-10 11:39 | disposition home or self-care (01) ==
PROVIDERS: PCP Internal Medicine; Visit Provider Internal Medicine
DX: Z00.00 Encounter for general adult medical examination without abnormal findings (principal); Q85.83 Von Hippel-Lindau syndrome; I48.0 Paroxysmal atrial fibrillation; J43.9 Emphysema, unspecified

== ENCOUNTER → 2024-08-10 10:20 | Outpatient (BNVA) | payer MEDICARE, MEDICAID, SELFPAY | PROVIDERS: PCP Internal Medicine; Visit Provider Internal Medicine | DX: Z00.00 Encounter for general adult medical examination without abnormal findings (principal); I48.0 Paroxysmal atrial fibrillation; J43.9 Emphysema, unspecified; Q85.83 Von Hippel-Lindau syndrome | CPT/HCPCS: 99212 ==

== ENCOUNTER 2024-08-10 11:44 | Outpatient (REF) | payer MEDICARE, MEDICAID, SELFPAY ==
[2024-08-10 14:11] LABS: MANUAL DIFF FLAG NO
[2024-08-10 14:20] LABS: Basophils Percent Auto 0.3 % (0-2); Eosinophils Absolute Auto 0.1 X10*3/uL (0.0-0.4); Eosinophils Percent Auto 1.2 % (0-4); Hematocrit 49.6 % (42.0-52.0); Hemoglobin 16.1 g/dl (14.0-18.0); Imm Gran Abs Auto 0.09 X10*3/uL (0.00-0.03); Lymphocytes Absolute Auto 0.8 X10*3/uL (1.2-4.9); Lymphocytes Percent Auto 9.1 % (20-40); Mean Corpuscular HGB Conc 32.5 g/dl (31.0-36.0); Mean Corpuscular Hemoglobin 27.8 pg (27.0-33.0); Mean Corpuscular Volume 85.5 fL (80.0-98.0); Monocytes Absolute Auto 1.1 X10*3/uL (0.1-1.2); Monocytes Percent Auto 11.8 % (2-11); NRBC Pct Auto 0.2 /100WBC (0.0-0.2); Neutrophils Absolute Auto 6.8 x10*3/uL (2.0-8.3); Neutrophils Percent Auto 76.6 % (45-73); Platelet Count 182 X10*3/uL (160-400); Red Cell Distribution Width 15.8 % (11.0-16.0); White Blood Count 8.9 X10*3/uL (4.8-10.8)
[2024-08-10 14:48] LABS: Albumin Level 4.5 g/dL (3.5-5.0); Alkaline Phosphatase 118 U/L (39-117); Anion Gap 14 (12-20); Aspartate Amino Transferase 31 U/L (5-37); Bilirubin Total 0.5 mg/dL (0.0-1.0); Blood Urea Nitrogen 32 mg/dL (9-16); Calcium 9.8 mg/dL (8.4-10.2); Carbon Dioxide 26 mmol/L (22-29); Chloride 105 mmol/L (96-108); Cholesterol 127 mg/dL (<200); Estimated Glomerular Filt Rate 35; Glucose Random 115 mg/dL (60-115); HDL Cholesterol 39 mg/dL (>40); LDL Cholesterol Calculated 40 mg/dL (<100); Potassium 5.4 mmol/L (3.3-5.1); Sodium 140 mmol/L (135-145); Total Protein 8.4 g/dL (6.5-8.0); Triglycerides 240 mg/dL (<150)
[2024-08-10 14:51] LABS: Prostate Specific Antigen 0.79 ng/mL (<0.05-4.0)
--- OUTSIDE RECORDS SUMMARY | 2024-08-10 14:54 | XMS_ITS | Encounter Summary ---
Author Organization [facility] Address [address] [place] [address] Care Team Providers Care Nut Tightener Name Role Phone Nita Harrison MD Primary Care Provider [phone] Reason for Referral * Imaging (Routine) - Closed Specialty Diagnoses / Procedures Referred By Nasim rogers Referred To Contact Radiology Diagnoses Encounter for screening for lung cancer History of tobacco use Procedures CT Lung Screening Micah Reyes MD [address] [address] Phone: tel: fax: [address] [address] Phone: tel: Referral ID Status Reason Start Date Expiration Date Visits Re quested Visits Authorized [id number] Closed 07/15/2024 07/15/2025 1 1 Reason for Visit * Imaging (Routine) - Closed Specialty Diagnoses / Procedures Referred By Contsridevi rogers Referred To Contact Radiology Diagnoses Encounter for screening for lung cancer History of tobacco use Procedures CT Lung Screening Micah Reyes MD [address] [address] Phone: tel: fax: [address] [address] Phone: tel: Referral ID Status Reason Start Date Expiration Date Visits Re quested Visits Authorized [id number] Closed 07/15/2024 07/15/2025 1 1 Encounter Details Date Type Department Care Team (Latest Contact Info) Description 08/03/2024 9:10 AM EST - 08/03/2024 11:59 PM EST Hospital Encounter [facility] CT Scan [address] [place] [address] Encounter for screening for lung [...] Upcoming Encounters Date Type Department Care Team ([facility] st Contact Info) Description 01/18/2025 10:45 AM EDT Office Visit Pulmonolgy - [place] 175 [facility] [address] [place] [address] Kelly Moyer MD 175 [facility] [address] [place] [address] documented as of this encounter Procedures Procedure [...] this report will be provided to the [facility] FIND Program. -------- FINAL REPORT -------- Dictated By: SAMMIE WEI Dictated Date: 08/05/2024 17:15 ET Assigned Physician: SAMMIE WEI Reviewed and Electronically Signed By: SAMMIE WEI Signed Date: 08/05/2024 17:36 ET Workstation ID: [id number] Transcribed By: Self Edit Transcribed Date: 08/05/2024 [...] health documented in this encounter Care Teams Nut Tightener Relationship Specialty Start Date End Date Nita Harrison MD [address] [place] [address] PCP - General Internal Medicine 08/28/21 documented as of this encounter
--- OUTSIDE RECORDS SUMMARY | 2024-08-10 14:54 | XMS_ITS | Encounter Summary ---
Author Organization [facility] Address [address] [place] [address] Care Team Providers Care Candle Molder Name Role Phone Nita Harrison MD Primary Care Provider [phone] Reason for Referral * Imaging (Routine) - Authorized Specialty Diagnoses / Procedures Referred By Nasim rogesr Referred To Contact Radiology Diagnoses Multiple pulmonary nodules Tobacco abuse Procedures CT Chest wo Contrast (Lung-RADS F/U) Clarice Arce PA 299 [facility], [address] [place] [address] Phone: tel: fax: [facility] Referral ID Status Reason Start Date Expiration Date V isits Requested Visits Authorized [id number] Authorized 08/10/2024 08/10/2025 1 1 Reason for Visit * Reason Onset Date Comments Results 08/09/2024 Same Day Lung Sc reening- LR0 Encounter Details Date Type Department Care Team ([facility] Contact Info) Description 08/09/2024 Telephone Lung Screening Program - [place] 299 [facility] [address] [place] [address] Mercedes Meza [place] Results (Same Day Lung [...] Cancer on Saturday, August 03, [address] [facility]. The radiologist interpreted this as a Lung [...] Upcoming Encounters Date Type Department Care Team ([facility] st Contact Info) Description 01/18/2025 10:45 AM EDT Office Visit Pulmonolgy - [place] 175 [facility] [address] [place] [address] Kelly Moyer MD 175 [facility] [address] [place] [address] Scheduled Orders Name Type Priority Associated Diagnoses Orde r Schedule CT Chest wo Contrast (Lung-RADS F/U) Imaging Routine Multiple pulmonary nodules Tobacco abuse Expected: 10/31/2024, Expires: 08/10/2025 documented as of this encounter Visit Diagnoses Diagnosis Multiple pulmonary nodules- Primary Other diseases of lung, not elsewhere classified Tobacco abuse Tobacco use disorder documented in this encounter Care Teams Candle Molder Relationship Specialty Start Date End Date Nita Harrison MD [address] [place] [address] [address] [place] [address] PCP - General Internal Medicine 08/28/21 documented as of this encounter
--- OUTSIDE RECORDS SUMMARY | 2024-08-10 14:54 | XMS_ITS | Clinical Summary ---
Author Organization 175 [facility] Address [address] [place] [address] Phone Care Team Providers Care Loan Servicing Specialist Name Role Phone Nita Harrison MD Primary Care Provider [phone] Allergies No known active allergies Medications apixaban [...] Encounters Date Type Department Care Team Description 08/10/2024 Telephone Lung Screening Program - [place] [address] [phone] Mercedes Meza [place] Results (Lung Cancer screening 08/03/24 - Incidental Findings) 08/09/2024 Telephone Lung Screening Program - [place] 299 [facility] [address] [place] [address] Mercedes Meza [place] Results (Same Day Lung Screening- LR0) 08/03/2024 9:10 AM EST - 08/03/2024 11:59 PM EST Hospital Encounter [facility] CT Scan [address] [place] [phone] Encounter for screening for lung cancer; History of tobacco use Discharge Disposition: Home or Self Care 08/03/2024 9:00 AM EST Office Visit Lung Screening Program - [place] 299 [facility] [address] [place] [address] Sabrina Beaver NP Encounter for screening for malignant neoplasm of lung in former smoker who quit in past 15 years with 30 pack year history or greater (Primary Dx); Chronic obstructive pulmonary disease, unspecified COPD type ([facility]) 07/06/2024 9:45 AM EST Office Visit Pulmonolgy - [place] 175 [facility] [address] [place] [address] Kelly Moyer MD Chronic obstructive pulmonary disease, unspecified COPD type ([facility]/HCC) (Primary Dx); Hypoxemia from Last 3 Months [...] History Medical History Date Comments COPD exacerbation ([facility]) DX:C OPD exacerbation ([facility]) Dyspnea DX:Dyspnea Essential hypertension DX:Essent ial hypertension Family History Medical History Relation Name Comments Lung cancer Neg Hx Social History Tobacco Use Types Packs/Day Years Used Date Smoking Tobacco: Former Cigarettes 1 53 1 [id number] Smokeless Tobacco: Former Tobacco Cessation:Counseling Given: Not [...] 10:45 AM EDT Office Visit Pulmonolgy - [place] [address] [place] [address] Kelly Moyer MD [address] [facility] [address] [place] [address] Health Maintenance Due Date Last Done Comments [...] this report will be provided to the [facility] FIND Program. -------- FINAL REPORT -------- Dictated By: SAMMIE WEI Dictated Date: 08/05/2024 17:15 ET Assigned Physician: SAMMIE WEI Reviewed and Electronically Signed By: SAMMIE WEI Signed Date: 08/05/2024 17:36 ET Workstation ID: [id number] Transcribed By: Self Edit Transcribed Date: 08/05/2024 [...] seen throughout the bones. Micah Reyes MD [facility] CT PROCEDURES Final Result from Last 3 Months Insurance MEDICARE MEDICAID - [place] Care Teams Loan Servicing Specialist Relationship Specialty Start Date End Date Nita Harrison MD [address] [place] [address] PCP - General Internal Medicine 08/28/21
--- OUTSIDE RECORDS SUMMARY | 2024-08-10 14:54 | XMS_ITS | Encounter Summary ---
Author Organization [facility] Address [address] [place] [address] Care Team Providers Care Trade Analyst Name Role Phone Nita Harrison MD Primary Care Provider [phone] Reason for Visit * Reason Comments SDMV * Consultation (Routine) - Closed Specialty Diagnoses / Procedures Referred By Contac t Referred To Contact Thoracic Surgery Diagnoses Chronic obstructive pulmonary disease, unspecified COPD type (CMS/HCC) Kelly Moyer MD 175 [facility] [address] [place] [address] Phone: tel: fax: Lung Screening Program - [place] 299 [facility] [address] [place] [address] Phone: tel: fax: Referral ID Status Reason Start Date Expiration Date V isits Requested Visits Authorized [id number] Closed Specialty Services Required 07/06/2024 07/06/2025 1 1 Encounter Details Date Type Department Care Team ([facility] st Contact Info) Description 08/03/2024 9:00 AM EST Office Visit Lung Screening Program - [place] 299 [facility] [address] [place] [address] Sabrina Beaver NP 299 [facility] [address] [place] [address] Encounter for screening for malignant neoplasm of [...] Referring Provider: Kelly Moyer MD PCP: Nita aHrrison MD Bone Process Operator: Isra Moyer MD History of Present Illness Mr. Espinoza is a 73 y.o. male who patient presents to the Lung Cancer Screening Program at [facility] for his Shared Decision Making visit. At [...] each, 1 Refills, Maintenance, 04/10/23 11:15:00 [facility], 90, INHALE 1 PUFF BY INHALATION ROUTE ONCE DAILY AT THE SAME TIME EACH DAY, 17... (Patient not taking: Reported on 07/06/2024) fluticasone propionate (FLONASE) 50 mcg/actuation nasal spray Administer 2 sprays into affected nostril(s) 1 (one) time each day. eddewgeltug-anlbkmdtentu-rklwtqecyc (Trelegy Ellipta) 200-62.5-25 mcg inhaler Inhale 1 [...] to proceed with Lung Cancer Screening at [facility]. This patient has a poor functional status [...] be reviewed by a multidisciplinary team at [facility] to form a plan of action in regards to the specific suspicious finding. If any further work-up is warranted for a suspicious lung nodule finding this will be followed up by the our program in conjunction with the Thoracic Surgery office at [facility]. The patient, referring physician, and primary care [...] patient during this visit. Sabrina Beaver NP [facility] Lung Cancer Screening Program 299 [facility], [address] [address] documented in this encounter Plan of Treatment Upcoming Encounters Date Type Department Care Team (Late st Contact Info) Description 01/18/2025 10:45 AM EDT Office Visit Pulmonolgy - [place] 175 [facility] [address] [place] [address] Kelly Moyer MD 175 [facility] [address] [place] [address] documented as of this encounter Visit Diagnoses Diagnosis Encounter for screening for malignant neoplasm of lung in former smoker who quit in past 15 years with 30 pack year history or greater- Primary Chronic obstructive pulmonary disease, unspecified COPD type (CMS/HCC) documented in this encounter Orders Outpatient Referral Count Last Ordered Date Fir st Ordered Date AMB REFERRAL TO [facility] LUNG SCREENING PROGRAM 1 08/03/2024 documented in this encounter Care Teams Trade Analyst Relationship Specialty Start Date End Date Nita Harrison MD [address] [place] [address] PCP - General Internal Medicine 08/28/21 documented as of this encounter
--- OUTSIDE RECORDS SUMMARY | 2024-08-10 14:54 | XMS_ITS | Encounter Summary ---
Author Organization [facility] Address [address] [place] [address] Care Team Providers Care Logistics Supervisor Name Role Phone Nita Harrison MD Primary Care Provider [phone] Reason for Visit * Reason Onset Date Comments Results 08/10/2024 Lung Cancer scre ening 08/03/24 - Incidental Findings Encounter Details Date Type Department Care Team ([facility] Contact Info) Description 08/10/2024 Telephone Lung Screening Program - [address] [place] [address] Mercedes Meza [place] Results (Lung Cancer screening 08/03/24 - Incidental Findings) Social History Tobacco Use Types Packs/Day Years Used Date Smoking Tobacco: Former Cigarettes 1 53 1 - 2019 Smokeless Tobacco: Former Alcohol Use Standard Drinks/Week Comments Not Currently 0 (1 standard drink = 0.6 oz pur e alcohol) Sex and Gender Information Value Date Recorded Sex Assigned at Male 07/30/2024 8:24 AM EST Legal Sex Male 6:26 PM EST Gender Identity Male 07/30/2024 8:24 AM EST Sexual Orientation Not on file documented as of this encounter Progress Notes * Mercedes Meza MA - 08/10/2024 2:45 PM EST This patient had their LDCT for lung cancer screening on 08/03/2024. Please note there was an incidental finding of Heterogeneous left posterior liver lesion, incompletely characterized on this exam.Multiple indeterminant right adrenal nodules. Abdominal MRI without and with contrast recommended to better characterize these findings. . As a reminder, incidental findings are the responsibility ofthe primary care provider. We will be scheduling their next screening for lung cancer in October 2024 for a 3 month follow-up for Lung Rads 0. Thank you. documented in this encounter Plan of Treatment Upcoming Encounters Date Type Department Care Team ([facility] st Contact Info) Description 01/18/2025 10:45 AM EDT Office Visit Pulmonolgy - [place] 175 [facility] 200 [place] [address] Kelly Moyer MD [address] [facility] 200 [place] [address] documented as of this encounter Visit Diagnoses Not on filedocumented in this encounter Care Teams Logistics Supervisor Relationship Specialty Start Date End Date Nita Harrison MD [address] [place] [address] [address] [place] [address] PCP - General Internal Medicine 08/28/21 documented as of this encounter
[2024-08-10 15:02] LABS: TSH reflex Free T4 4.93 uIU/mL (0.32-4.0)
[2024-08-10 15:21] LABS: Alanine Aminotransferase 31 U/L (0-40)
[2024-08-10 15:26] LABS: Estimated Average Glucose 128 mg/dL; Hemoglobin A1c % 6.1 % (<6.0)
[2024-08-10 15:35] LABS: Free T4 (Free Thyroxine) 1.04 ng/dL (0.71-1.85)
== END 2024-08-10 11:45 | disposition home or self-care (01) ==
LOC: HO.WFDLDS 11:44
PROVIDERS: Visit Provider Internal Medicine
DX: Z00.00 Encounter for general adult medical examination without abnormal findings (principal); I48.0 Paroxysmal atrial fibrillation; J43.9 Emphysema, unspecified; N18.9 Chronic kidney disease, unspecified; F41.9 Anxiety disorder, unspecified; Z79.01 Long term (current) use of anticoagulants; Q85.83 Von Hippel-Lindau syndrome; Z12.5 Encounter for screening for malignant neoplasm of prostate; Z13.1 Encounter for screening for diabetes mellitus
CPT/HCPCS: 36415; 80053; 80061; 83036; 84153; 84439; 84443; 85025; 99212

== ENCOUNTER → 2024-11-23 23:59 | Outpatient (BNV) | payer MEDICARE, MEDICAID, SELFPAY | PROVIDERS: PCP Internal Medicine; Visit Provider Internal Medicine | DX: J96.01 Acute respiratory failure with hypoxia (principal); J18.9 Pneumonia, unspecified organism; I48.91 Unspecified atrial fibrillation | CPT/HCPCS: G0180 ==

== ENCOUNTER 2024-12-13 13:58 | Outpatient (AMB) | payer MEDICARE, MEDICAID, SELFPAY ==
--- NOTE | 2024-12-13 14:05 | A.OFFPC_ITS ---
Vital Signs 12/13/24 14:20 Height 5 ft 8.11 in Weight 188 lb 2 oz BMI 28.5 BP 108/72 Blood Pressure Location Lt brachial Position Sitting Respiration 14 Pulse 80 Pulse Source Pulse Oximeter Temp 97.8 F Temp Source Oral Pulse Oximetry (%) 95 Oxygen Delivery Method Nasal Cannula Oxygen Flow Rate 2 Intake Visit Reasons: HDF from [facility] on 11/11/2024 Intake Note: Hospital discharge follow up. Thinks he is take hydrochlorothiazide 50, but it says to stop on discharge summary at the hospital. States the only medication that was stopped was Lisinopril. 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 Allergies No Known Allergies (No Known Allergies*) Allergy (Verified 12/13/24 14:19) Tobacco use date assessed: 08/10/24 Fall risk assessment: No Falls in past year Last assessed Fall Risk: 12/13/24 Dental Screening Dental Screen Date: 12/13/24 Did you have a dental visit in the last 12 months?: No Did you have a dental problem in the last 6 months where you did not have access to dental care?: No Was dental information given to patient?: Patient declined (has no teeth) HPI HPI Comments History of Present Illness Details The patient is a 74-year-old male with a past history hypertension, paroxysmal atrial fibrillation, depression and anxiety, dyslipidemia, COPD with emphysema complicated by chronic hypoxemic respiratory failure on 2 L O2, on nonischemic cardiomyopathy, chronic daily diarrhea and von Hippel-Lindau syndrome who presents for hospital follow up He was hospitalized from 11/03-11/08/2024 at [facility]. He presented for shortness of breath. ICU. Follow up with Dr Moyer Jan 12 and cardiology 03/10/25. 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 He underwent MRCP and GI was consulted. MRCP showed focal biliary dilation. No mass lesion was delineated. Ductal dilation isolated segment of the left lower liver with some debris within the left lobe. LFTs unremarkable. Recommended against ERCP by GI. Colonoscopy with normal pathology and biopsy. Saw Dr Barron-repeated MRI-no interval change CV: Follows with [facility]. On eliquis, lipitor 40 mg daily, lopressor. stopped lisinopril Denies chest pain, shortness breath. Nephro: CKD stage 3 Pulmonary: Chronic hypoxemic respiratory failure on 02 therapy. On trelegy Follows with Dr Vaughan. [facility]ookie BH: On sertraline, mirtazapine and hydroxyzine as needed. Follows with [facility] Colonoscopy 2022 ROS CONSTITUTIONAL: Denies weight loss, fever and chills. HEENT: Denies changes in vision and hearing. RESPIRATORY: Denies SOB and cough. CV: Denies palpitations and CP GI: Denies abdominal pain, nausea, vomiting and diarrhea. : Denies dysuria and urinary frequency. MSK: Denies new myalgia and joint pain. SKIN: Denies rash and pruritus. NEUROLOGICAL: Denies headache PSYCHIATRIC: Denies recent changes in mood. PHYSICAL EXAM: GENERAL: Alert and oriented x 3. NAD EYES: EOMI. Anicteric. HENT: Moist mucous membranes. No scleral icterus. No cervical lymphadenopathy. LUNGS: Coarse bs right, scattered wheeze b/l CARDIOVASCULAR: Regular rate and rhythm. No murmur. No JVD. ABDOMEN: Soft, non-tender +bs EXTREMITIES: No edema. Non-tender. SKIN: No rashes or lesions. Warm. NEUROLOGIC: No focal neurological deficits. CN II-XII grossly intact PSYCHIATRIC: Cooperative. Appropriate mood and affect [facility] Medical History VHL (von Hippel-Lindau syndrome) Smoking hx Seasonal allergies Obesity, Class I, BMI 30.0-34.9 (see actual BMI) Macular degeneration Emphysema lung Dilation of common bile duct Depression Chronic kidney disease Afib Anxiety Abnormal gall bladder diagnostic imaging Surgical History H/O colonoscopy Social History Housing: Apartment Alcohol intake: current Patient Tobacco Use Status: Former Tobacco user Cigarette Packs Per Day: 3 Years Smoked: 50 e-Cigarette/Vaping Use: Never Used Second Hand Smoke Exposure: No service: No Current occupational status: retired Cognitive needs: No Hearing needs: No Vision needs: Yes (legally blind) Questionnaire PHQ-9 Over the last 2 weeks, how often have you been bothered by any of the following problems? 1. Little interest or pleasure in doing things: nearly every day 2. Feeling down, depressed, or hopeless: not at all 3. Trouble falling or staying asleep, or sleeping too much: not at all 4. Feeling tired or having little energy: several days 5. Poor appetite or overeating: several days 6. Feeling bad about yourself - or that you are a failure or have let yourself or your family down: not at all 7. Trouble concentrating on things, such as reading the newspaper or watching television: several days 8. Moving or speaking so slowly that other people could have noticed. Or the opposite - being so fidgety or restless that you have been moving around a lot more than usual: not at all 9. Thoughts that you would be better off or of hurting yourself in some way: not at all Total score: 6 Depression Screening Interpretation: Positive Depression Screening Follow-up: Existing condition Depression Screening Done: Yes [id number] - PHQ-9 Billing: Yes Source: Developed by Drs. Néstor Slaughter, Isa Cullen, Kareem Alejandre and colleagues, with an educational elma from [employer]. Thrive Questionnaire Date Thrive assessed: 08/10/24 I am a: Patient What is your living situation today?: I have a steady place to live Within the past 12 months, did the food you bought not last and you didn't have the money to get more?: Never true Within the past 12 months, did you worry whether your food would run out before you got money to buy more?: Never true Do you have trouble paying for medicines?: No Do you have trouble getting transportation to medical appointments?: Yes Do you have trouble paying your heating and electricity bill?: No Do you have trouble taking care of your child, family member or friend?: No Do you have trouble with day-to-day activities such as bathing, preparing meals, shopping, managing finances, etc.?: No Are you currently unemployed and looking for a job?: No Are you interested in more education?: No Please select the resources that you would like help with: None Currently or been in a relationship where the following occur: No concerns reported THRIVE Score: 1 AUDIT C Alcohol Use Questionnaire (AUDIT-C) 1. How often do you have a drink containing alcohol?: Never Total Score: 0 JAMES-7 AMB Questionnaire JAMES-7 Date JAMES - 7 assessed: 03/09/24 Feeling nervous, anxious, or on edge: 1 = Several days Not being able to stop or control worryin = Several days Worrying too much about different things: 0 = Not at all Trouble relaxin = Several days Being so restless that it is hard to sit still: 0 = Not at all Becoming easily annoyed or irritable: 0 = Not at all Feeling afraid as if something awful might happen: 0 = Not at all Total JAMES-7 score (0-4 normal; 5-9 mild; 10-14 moderate; 15-21 severe): 3 Source: Developed by Drs. Néstor Slaughter, Isa Cullen, Kareem Alejandre and colleagues, with an educational elma from [employer]. Physical exam (Primary Care) Vital Signs: Last Vital Signs Temp 97.8 F 12/13/24 14:20 Pulse 80 12/13/24 14:20 Resp 14 12/13/24 14:20 BP 108/72 12/13/24 14:20 Pulse Ox 95 12/13/24 14:20 Oxygen Delivery Method Nasal Cannula 12/13/24 14:20 Oxygen Flow Rate 2 12/13/24 14:20 BMI result Body Mass Index 28.5 Tobacco/Smoking Status: Tobacco use Status Tobacco use date assessed 08/10/24 12/13/24 14:06 Patient Tobacco Use Status Former Tobacco user 12/13/24 14:06 e-Cigarette/Vaping Use Never Used 12/13/24 14:06 PHQ-9: PHQ-9 Score PHQ-9: Total score 6 12/13/24 14:42 Depression Screening Interpretation: Positive Depression Screening Follow-up: Existing condition Thrive Assessment: Date of Thrive Assessment Date Thrive assessed 08/10/24 12/13/24 14:06 Currently or been in a relationship where the following occur: No concerns reported Coding Level of Care Code Est Pt Level 4 (59761) Diagnoses Hospital discharge follow-up Z09 Recurrent major depressive disorder, in partial remission F33.41 Depression Type: major depressive disorder Major depression recurrence: recurrent Active/Remission status: in partial remission Paroxysmal atrial fibrillation I48.0 Atrial fibrillation type: paroxysmal VHL (von Hippel-Lindau syndrome) Q85.83 Additional Codes PHQ-9 - 14486 - PHQ-9 Billing: Yes ([id number]) Assessment & Plan Assessment & Plan (1) Hospital discharge follow-up: Code(s): Z09 - Encounter for follow-up examination after completed treatment for conditions other than malignant neoplasm (2) Depression: Code(s): F32.A - Depression, unspecified Category: Medical Qualifiers: Depression Type: major depressive disorder Major depression recurrence: recurrent Active/Remission status: in partial remission Qualified Code(s): F33.41 - Major depressive disorder, recurrent, in partial remission (3) Afib: Code(s): I48.91 - Unspecified atrial fibrillation Category: Medical Qualifiers: Atrial fibrillation type: paroxysmal Qualified Code(s): I48.0 - Paroxysmal atrial fibrillation (4) VHL (von Hippel-Lindau syndrome): Code(s): Q85.83 - Von Hippel-Lindau syndrome Category: Medical Plan Hospital discharge not received Hospitalization reviewed with patient Medications reconciled Saw cardiology last week. Pulmonary upcoming Breating status back to baseline Medications: Discontinued metoprolol succinate ER Discontinued Reason: Doctor's Order 50 mg PO DAILY 90 tabs 3RF doxycycline hyclate Discontinued Reason: Doctor's Order 100 mg PO BID 20 tabs 0RF
[2024-12-13 14:20] VITALS: BP 108/72; PULSE 80; RESP 14; TEMP 36.6; O2SAT 95; BMI 28.5
--- OUTSIDE RECORDS SUMMARY | 2024-12-13 14:28 | XMS_ITS | Clinical Summary ---
Author Organization [facility] Address [address] [place] [address] Phone Care Team Providers Care Judge'S Clerk Name Role Phone Nita Harrison MD Primary Care Provider [phone] Allergies No known active allergies Medications apixaban (Eliquis) 5 mg tablet Take 1 tablet (5 mg total) by mouth. 3 Active atorvastatin (LIPITOR) 40 mg tablet Take 1 tablet (40 mg total) by mouth 1 (one) time each day. 3 09/29/19 26 Active fluticasone propionate (FLONASE) 50 mcg/actuation nasal [...] mouth 2 (two) times a day. Active mirtazapine (REMERON) 30 mg tablet [...] AREDS ORAL) Take by mouth. Activ e metoprolol tartrate (LOPRESSOR) 50 mg tablet Take 1 tablet (50 mg total) by mouth 2 (two) times a day. 60 each 2 5 02/07/20 25 Active guaiFENesin (MUCINEX) 600 mg 12 hr tablet Take 1 tablet (600 mg total) by mouth every 12 (twelve) hours for 5 days. Do not crush, chew, or split. 10 each 5 11/14/19 25 predniSONE (DELTASONE) 20 mg tablet Take 2 tablets (40 mg total) by mouth 1 (one) time each day for 2 days, THEN 1.5 tablets (30 mg total) 1 (one) time each day for 2 days, THEN 1 tablet (20 mg total) 1 (one) time each day for 2 days. 9 each 5 11/15/19 25 magnesium lactate (MAGTAB) 84 mg CR tablet Take 1 tablet (84 mg total) by mouth 2 (two) times a day with meals. 60 tablet 5 12/09/19 25 Active Problems Problem Noted Date Diagnosed Date Pneumonia of right lower lobe due to infectious organism 11/08/2024 Hypertension 12/17/2021 Cardiomyopathy ([facility] V24, [facility] V28) 2021 Overview (04/07/2024): Last Assessment & Plan: Echocardiogram while hospitalized for A. fib disclosed mildly reduced left ventricular systolic function. This is highly suspicious for a tachycardia induced cardiomyopathy. Nonetheless given his risk factors I do think that some evaluation for coronary artery disease and ischemia is warranted. We will make arrangements for pharmacologic nuclear stress test. AAA (abdominal aortic aneurysm) ([facility] V24) Overview (04/07/2024): Last Assessment & Plan: Given [...] to 6 months. Atrial fibrillation with RVR ([facility] V24, [facility] V28) 09/20/2021 Overview (04/07/2024): Last Assessment & Plan: Elsa has longstanding persistent atrial fibrillation with recent [...] most recent creatinine was 1.1. COPD exacerbation ([facility] V24, [facility] V28) Dyspnea 09/20/2021 Overview (04/07/2024): Last Assessment & Plan: Longstanding emphysema now on home oxygen. He has not had regular follow-up with pulmonary. Will arrange for this to be done. Resolved Problems Problem Noted Date Diagnosed Date Resolved Date Acute hypoxemic respiratory failure ([facility] V24, [facility] V28) 11/03/2024 11/08/2024 Encounters Date Type Department Care Team Description 11/03/2024 2:35 PM EDT - 11/08/2024 5:10 PM EDT Hospital Encounter [facility] [address] [place] [address] Aguila Pike MD Cheng, DO Evette Ruiz Carlos M, MD Jones, Christopher, MD Japaridze, Anna, MD Bell, Alistair A, MD COPD exacerbation ([facility] V24, [facility] V28) (Primary Dx); Pneumonia of right lower lobe due to infectious organism; Acute respiratory failure with hypoxia ([facility] V24, [facility] V28); Atrial fibrillation with rapid ventricular response ([facility] V24, [facility] V28) Discharge Disposition: Home-Health Care Svc 11/02/2024 9:51 AM EDT - 11/02/2024 11:59 PM EDT Hospital Encounter [facility] CT Scan [address] [place] [address] Multiple pulmonary nodules; Tobacco abuse Discharge Disposition: Home or Self Care 10/21/2024 Telephone Lung Screening Program - [facility] [address] [facility] [address] [place] [id number] Maria Antonia Cullen [place] Appointment (1st Notification) from Last 3 Months Immunizations Name Administration [...] History Medical History Date Comments COPD exacerbation ([facility] V24, [facility] V28) DX:COPD exacerbation (HCC) Dyspnea DX:Dyspnea Essential hypertension DX:Essent ial hypertension HLD (hyperlipidemia) Atrial fibrillation ([facility] V24, [facility] V28) Cardiomyopathy ([facility] V24, [facility] V28) AAA (abdominal aortic aneurysm) ([facility] V24) History of tobacco use Family History Medical History Relation Name Comments Lung cancer Neg Hx Social History Tobacco Use Types Packs/Day Years Used Date Smoking Tobacco: Former Cigarettes 1 53 1 967 2019 Smokeless Tobacco: Former Tobacco Cessation:Counseling Given: Not Answered Alcohol Use Standard Drinks/Week Comments Not Currently 0 (1 standard drink = 0.6 oz pur e alcohol) Food Risk Answer Date Recorded Within the past 12 months we worried whether our food would run out before we got money to buy more. Never true 11/04/2024 Within the past 12 months th e food we bought just didn't last and we didn't have money to get more. Never true 11/04/2024 Interpersonal Safety Answer Date Record ed Physical Abuse 11/03/2024 Verbal Abuse 11/03/2024 Sex and Gender Information Value Date Recorded Sex Assigned at Male 07/30/2024 8:24 AM EST Legal Sex Male 6:26 PM EST Gender Identity Male 07/30/2024 8:24 AM EST Sexual Orientation Not on file Obstetrics History Last Filed Vital Signs Vital Sign Reading Time Taken Comments Blood Pressure 142/91 11/08/2024 3:08 PM EDT Pulse 60 11/08/2024 3:08 PM EDT Temperature 36.6 C (97.9 F) 11/08/2024 3:08 PM EDT Respiratory Rate 18 11/08/2024 3:08 PM EDT Oxygen Saturation 95% 11/08/2024 3:08 PM EDT Inhaled Oxygen Concentration - - Weight 90.7 kg (200 lb) 11/04/2024 1:51 PM EDT Height 172.7 cm (5' 7.99 ) 11/04/2024 1:51 PM ED T Body Mass Index 30.42 11/04/2024 1:51 PM EDT Plan of Treatment Upcoming Encounters Date Type Department Care Team (Late st Contact Info) Description 01/12/2025 9:45 AM EDT Office Visit Pulmonolgy - [facility] [address] [facility] [address] [place] [address] Kelly Moyer MD [address] [facility] [address] [place] [address] Health Maintenance Due Date Last Done Comments Zoster Vaccines (1 of 2) 09/22/2001 RSV Immunization Adult Patients (1 - Risk 60-74 years 1-dose series) 2011 Cholesterol Screening (Lipid Panel) 05/19/2022 Colorectal Cancer Screening: Colonoscopy 05/19/2022 Depression Screening 05/19/2022 Hepatitis C Screening 05/19/2022 Medicare Annual Wellness Visit 05/19/2022 COVID-19 Vaccine ( season) 2024 04/03/2023, 04/09/2021, 09/26/2020, Additional history exists Influenza Vaccine (#1) 2025 , 03/10/2023, 03/07/2021, Additional history exists Lung Cancer Screening (Low Dose CT) 08/03/2025 08/03/2024 Social Influencers of Health Screening 11/04/2025 11/04/2024 Falls Risk Assessment 11/08/2025 11/08/2024 Hypertension/CHF/CAD Annual BMP Blood Test 11/08/2025 11/08/2024, 11/07/2024, 11/06/2024, Additional history exists DTaP,Tdap,and Td Vaccines (2 - Td or Tdap) 05/23/2033 05/23/2023 Pneumococcal Vaccine: 50+ Years Completed 05/23/2023, 03/14/2020, 04/03/2018 HIB Vaccines Aged Out No longer eligi [...] age to complete this topic Meningococcal B Vaccine Aged Out No l onger eligible based on patient's age to complete this topic RSV Immunization Patients Under 20 months Aged Out No longer eligible based on patient's age to complete this topic Varicella Vaccines Aged Out No longer eligible based on patient's age to complete this topic Procedures Procedure Name Priority Date/Time Associated Diagnosis Comments ECG OUTSIDE 11/09/2024 ECG ANNOTATED 11/09/2024 HOME O2 EVAL (DESATURATION SCREEN) Routine 11/08/2024 10:28 AM EDT MANUAL DIFFERENTIAL - SYSMEX WAM Routine 11/08/2024 5:52 AM EDT CBC WITH AUTO DIFFERENTIAL Routine 11/08/2024 5:52 AM EDT MAGNESIUM Routine 11/08/2024 5:52 AM EDT CBC AND DIFFERENTIAL Routine 11/08/2024 5:52 AM EDT BASIC METABOLIC PANEL Routine 11/08/2024 5:52 AM EDT POTASSIUM Routine 11/07/2024 2:24 PM EDT OXYGEN THERAPY, ADULT Routine 11/07/2024 8:00 AM EDT CBC WITH AUTO DIFFERENTIAL Routine 11/07/2024 5:47 AM EDT CBC AND DIFFERENTIAL Routine 11/07/2024 5:47 AM EDT BASIC METABOLIC PANEL Routine 11/07/2024 5:47 AM EDT OXYGEN THERAPY, ADULT Routine 11/06/2024 8:00 PM EDT POTASSIUM Routine 11/06/2024 2:43 PM EDT TN PROTEIN ELECTROPHORETIC FRACTIONATION & QUANTITATION SERUM Routine 11/06/2024 12:26 PM EDT PROTEIN, TOTAL Routine 11/06/2024 12:26 PM EDT PROTEIN ELECTROPHORESIS, SERUM Add-On 11/06/2024 12:26 PM EDT PROTEIN, URINE, RANDOM Routine 11:40 AM EDT KAPPA-LAMBDA LIGHT CHAINS, FREE WITH RATIO, URINE Routine 11/06/2024 11:40 AM EDT OXYGEN THERAPY, ADULT Routine 11/06/2024 8:00 AM EDT TN IMMUNOFIXATION ELECTROPHORESIS SERUM Routine 11/06/2024 5:41 AM EDT IMMUNOGLOBULINS IGG, IGA, IGM Add-On 11/06/2024 5:41 AM EDT IMMUNOFIXATION ELECTROPHORESIS Add-On 11/06/2024 5:41 AM EDT IMMUNOFIXATION ELECTROPHORESIS Add-On 11/06/2024 5:41 AM EDT HEPATIC FUNCTION PANEL Add-On 5:41 AM EDT MAGNESIUM Add-On 11/06/2024 5:41 AM EDT CBC WITH AUTO DIFFERENTIAL Routine 11/06/2024 5:41 AM EDT CBC AND DIFFERENTIAL Routine 11/06/2024 5:41 AM EDT BASIC METABOLIC PANEL Routine 11/06/2024 5:41 AM EDT OXYGEN THERAPY, ADULT Routine 11/05/2024 8:01 PM EDT OXYGEN THERAPY, ADULT Routine 11/05/2024 8:02 AM EDT CBC WITH AUTO DIFFERENTIAL Routine 11/05/2024 5:50 AM EDT MAGNESIUM Routine 11/05/2024 5:50 AM EDT CBC AND DIFFERENTIAL Routine 11/05/2024 5:50 AM EDT BASIC METABOLIC PANEL Routine 11/05/2024 5:50 AM EDT OXYGEN THERAPY, ADULT Routine 11/04/2024 8:00 PM EDT US RETROPERITONEAL COMPLETE Routine 11/04/2024 4:23 PM EDT CULTURE SPUTUM Routine 11/04/2024 2:20 PM EDT URINALYSIS MICROSCOPIC ONLY Routine 11/04/2024 10:53 AM EDT SODIUM, URINE, RANDOM Routine 11/04/2024 10:53 AM EDT CREATININE, URINE, RANDOM STAT 11/04/2024 10:53 AM EDT URINALYSIS MICROSCOPIC ONLY Routine 11/04/2024 10:53 AM EDT RIVAS URINE CULTURE TUBE STAT 11/05/19 10:53 AM EDT URINALYSIS WITH REFLEX MICROSCOPIC AND CULTURE STAT 11/04/2024 10:53 AM EDT URINALYSIS WITH REFLEX MICROSCOPIC AND CULTURE STAT 11/04/2024 10:53 AM EDT LEGIONELLA ANTIGEN URINE, EIA STAT 11/04/2024 10:53 AM EDT OXYGEN THERAPY, ADULT Routine 11/04/2024 9:58 AM EDT OXYGEN THERAPY, ADULT Routine 11/04/2024 9:58 AM EDT CBC WITH AUTO DIFFERENTIAL Routine 11/04/2024 5:32 AM EDT CBC AND DIFFERENTIAL Routine 11/04/2024 5:32 AM EDT MAGNESIUM Routine 11/04/2024 5:32 AM EDT BASIC METABOLIC PANEL Routine 11/04/2024 5:32 AM EDT OXYGEN THERAPY, ADULT Routine 11/03/2024 11:08 PM EDT OXYGEN THERAPY, ADULT Routine 11/03/2024 11:08 PM EDT VENOUS BLOOD GAS STAT 11/03/2024 4:29 PM EDT ECG 12-LEAD STAT 11/03/2024 4:23 PM EDT TROPONIN I HIGH SENSITIVITY STAT 11/03/2024 3:46 PM EDT XR CHEST 1 VIEW STAT 11/03/2024 3:39 PM EDT RESPIRATORY VIRUS PANEL MOLECULAR STUDY STAT 11/03/2024 3:11 PM EDT [id number], RSV, FLU A AND B QUALITATIVE RT-PCR, INTERNAL LAB STAT 11/03/2024 3:11 PM EDT MANUAL DIFFERENTIAL - SYSMEX WAM STAT 11/03/2024 2:58 PM EDT PROCALCITONIN Add-On 11/03/2024 2:58 PM EDT THYROID STIMULATING HORMONE WITH REFLEX TO FREE T4 AND FREE T3 Add-On 11/03/2024 2:58 PM EDT CBC WITH AUTO DIFFERENTIAL STAT 11/03/2024 2:58 PM EDT B-TYPE NATRIURETIC PEPTIDE STAT 11/03/2024 2:58 PM EDT MAGNESIUM STAT 11/03/2024 2:58 PM EDT LIPASE STAT 11/03/2024 2:58 PM EDT COMPREHENSIVE METABOLIC PANEL STAT 11/03/2024 2:58 PM EDT CBC AND DIFFERENTIAL STAT 11/03/2024 2:58 PM EDT TROPONIN I HIGH SENSITIVITY STAT 11/03/2024 2:58 PM EDT ECG 12-LEAD STAT 11/03/2024 2:[address] CHEST WO CONTRAST (LUNG-RADS F/U) Routine 11/02/2024 10:21 AM EDT Multiple pulmonary nodules Tobacco abuse CT LUNG SCREENING Routine 08/03/2024 9:2 0 AM EST Encounter for screening for lung cancer History of tobacco use from Last 3 Months or Most Recently Relevant to Health Maintenance Results * ECG-Outside (11/09/2024) us Provider Onbase MD ECG ORDERABLES Final Result * ECG-Annotated (11/09/2024) us Provider Onbase MD ECG ORDERABLES Final Result * (ABNORMAL) Manual differential (11/08/2024 5:52 AM EDT) Only the most recent of2 resultswithin the time period is included. Neutrophils % 86.0 % LAB HEMETOLOGY METHOD 11/08/2024 7:13 AM [facility] Lymphocytes % 6.0 % LAB HEMETOLOGY METHOD 11/08/2024 7:13 AM [facility] Monocytes % 5.0 % LAB HEMETOLOGY METHOD 11/08/2024 7:13 AM [facility] Eosinophils % 2.0 % LAB HEMETOLOGY METHOD 11/08/2024 7:13 AM [facility] Basophils % 0.0 % LAB HEMETOLOGY METHOD 11/08/2024 7:13 AM [facility] Metamyelocytes % 1.0(H) % LAB HEMETOLOGY METHOD 11/08/2024 7:13 AM [facility] Neutrophils Absolute Manual 12.21(H) 1.50 - 7.00 K/mcL LAB HEMETOLOGY METHOD 11/08/2024 7:13 AM [facility] Lymphocytes Absolute 0.85(L) 1.00 - 5.00 K/mcL LAB HEMETOLOGY METHOD 11/08/2024 7:13 AM EDT [facility] Monocytes Absolute Manual 0.71 0.20 - 1.00 K/mcL LAB HEMETOLOGY METHOD 11/08/2024 7:13 AM EDT [facility] Eosinophils Absolute Manual 0.28 0.00 - 0.50 K/mcL LAB HEMETOLOGY METHOD 11/08/2024 7:13 AM EDT [facility] Basophils Absolute Manual 0.00 0.00 - 0.20 K/mcL LAB HEMETOLOGY METHOD 11/08/2024 7:13 AM EDT [facility] Metamyelocytes Absolute Manual 0.14(H) 0.00 - 0.00 K/mcL LAB HEMETOLOGY METHOD 11/08/2024 7:13 AM EDT [facility] Rbc Morphology See comment( A) Consistent with indices, Normal for LAB HEMETOLOGY METHOD 11/08/2024 7:13 AM EDT [facility] Comment:RBC: Morphology agre es with CBC Platelet Morphology - WAM See Note(A) Normal LAB HEMETOLOGY METHOD 11/08/2024 7:13 AM EDT [facility] Comment:PLT: Normal Blood Venous blood specimen / Unknown Venipuncture / Unknown 11/08/2024 5:52 AM EDT 11/08/2024 6:16 AM EDT us Scarlett Dave MD LAB BLOOD ORDERABLES Final Res ult [facility]) [facility] [address] [place] [address], * (ABNORMAL) CBC auto differential (11/08/2024 5:52 AM EDT) Only the most recent of6 resultswithin the time period is included. WBC 14.2(H) 4.8 - 10.8 K/mcL LAB HEMETOLOGY METHOD 11/08/2024 7:13 AM [facility] RBC 5.20 4.50 - 5.50 M/mcL LAB HEMETOLOGY METHOD 11/08/2024 7:13 AM [facility] Hemoglobin 14.4 13.5 - 17.5 g/dL LAB HEMETOLOGY METHOD 11/08/2024 7:13 AM [facility] Hematocrit 45.7 42.0 - 54.0 % LAB HEMETOLOGY METHOD 11/08/2024 7:13 AM [facility] MCV 87.7 79.0 - 98.0 FL LAB HEMETOLOGY METHOD 11/08/2024 7:13 AM [facility] MCH 27.6 27.0 - 32.0 pcg LAB HEMETOLOGY METHOD 11/08/2024 7:13 AM [facility] MCHC 31.5(L) 32.0 - 37.0 g/dL LAB HEMETOLOGY METHOD 11/08/2024 7:13 AM [facility] RDW 14.1 11.0 - 15.0 % LAB HEMETOLOGY METHOD 11/08/2024 7:13 AM [facility] Platelets 186 130 - 400 K/mcL LAB HEMETOLOGY METHOD 11/08/2024 7:13 AM [facility] MPV 11.0 7.0 - 11.0 FL LAB HEMETOLOGY METHOD 11/08/2024 7:13 AM [facility] NRBC 0.0 <1.0 % LAB HEMETOLOGY METHOD 11/08/2024 7:13 AM [facility] NRBC Absolute 0.00 <0.10 K/mcL LAB HEMETOLOGY METHOD 11/08/2024 7:13 AM [facility] Blood Venous blood specimen / Unknown Venipuncture / Unknown 11/08/2024 5:52 AM EDT 11/08/2024 6:16 AM EDT us Scarlett Dave MD LAB BLOOD ORDERABLES Final Res ult Performing Organization Address [facility]/ZIP Co de Phone Number [facility] [address] [place] [address], [place] [phone] * (ABNORMAL) Magnesium (11/08/2024 5:52 AM EDT) Only the most recent of5 resultswithin the time period is included. Pathologist [facility] Magnesium 1.7(L) 1.9 - 2.6 mg/dL LAB CHEMISTRY METHOD 11/08/2024 8:10 AM EDT [facility] Blood Venous blood specimen / Unknown Venipuncture / Unknown 11/08/2024 5:52 AM EDT 11/08/2024 6:16 AM EDT Scarlett Dave MD LAB BLOOD ORDERABLES Final Res ult Performing Organization Address [facility]/ZIP Co de Phone Number [facility] [address] [place] [address], [place] [phone] * (ABNORMAL) Basic metabolic panel (11/08/2024 5:52 AM EDT) Only the most recent of5 resultswithin the time period is included. Sodium 135 133 - 145 mmol/L LAB CHEMISTRY METHOD 11/08/2024 8:10 AM EDT [facility] Potassium 5.4 3.5 - 5.5 mmol/L LAB CHEMISTRY METHOD 11/08/2024 8:10 AM EDT [facility] Chloride 101 96 - 110 mmol/L LAB CHEMISTRY METHOD 11/08/2024 8:10 AM EDT [facility] CO2 30 21 - 32 mmol/L LAB CHEMISTRY METHOD 11/08/2024 8:10 AM EDT [facility] Anion Gap 4 3 - 11 LAB CHEMISTRY METHOD 11/08/2024 8:10 AM EDT [facility] Glucose 93 70 - 100 mg/dL LAB CHEMISTRY METHOD 11/08/2024 8:10 AM T [facility] BUN 52(H) 5 - 25 mg/dL LAB CHEMISTRY METHOD 11/08/2024 8:10 AM EDT [facility] Creatinine 1.63(H) 0.70 - 1.30 mg/dL LAB CHEMISTRY METHOD 11/08/2024 8:10 AM EDT [facility] eGFR 44(L) >=60 mL/min/1. 73m2 LAB CHEMISTRY METHOD 11/08/2024 8:10 AM T [facility] Comment:Calculation based on the Chronic Kidney Disease Epidemiology Collaboration (CKD-EPI) equation refit without adjustment for race. BUN/Creatinine Ratio 31.9 LAB CHEMISTRY METHOD 11/08/2024 8:10 AM EDT [facility] Calcium 9.5 8.5 - 10.5 mg/dL LAB CHEMISTRY METHOD 11/08/2024 8:10 AM [facility] Blood Venous blood specimen / Unknown Venipuncture / Unknown 11/08/2024 5:52 AM EDT 11/08/2024 6:16 AM EDT us Scarlett Dave MD LAB BLOOD ORDERABLES Final Res ult [facility] [address] [place] [address], * (ABNORMAL) Potassium (11/07/2024 2:24 PM EDT) Only the most recent of2 resultswithin the time period is included. Potassium 5.6(H) 3.5 - 5.5 mmol/L LAB CHEMISTRY METHOD 11/07/2024 3:00 PM EDT [facility] Blood Venous blood specimen / Unknown Venipuncture / Unknown 11/07/2024 2:24 PM EDT 11/07/2024 2:32 PM EDT Scarlett Dave MD LAB BLOOD ORDERABLES Final Res ult Performing Organization Address [facility]/ZIP Co de Phone Number [facility] [address] [place] [address], [place] [phone] * PATHOLOGIST REVIEW PROTEIN ELECTROPHORESIS (11/06/2024 12:26 PM EDT) Pathologist Interpretation 11/10/2024 8:11 AM EDT [facility] Blood Venous blood specimen / Unknown Venipuncture / Unknown 11/06/2024 12:26 PM EDT 11/06/2024 12:54 PM EDT Scarlett Dave MD LAB BLOOD ORDERABLES Final Res ult Performing Organization Address [facility]/ZIP Co de Phone Number [facility] [address] [place] [address], [place] [phone] * Protein electrophoresis, serum (11/06/2024 12:26 PM EDT) Total Protein 7.5 6.0 - 8.0 g/dL LAB CHEMISTRY METHOD 11/10/2024 8:11 AM EDT [facility] Albumin, Serum 3.6 2.9 - 4.1 g/dL LAB CHEMISTRY METHOD 11/10/2024 8:11 AM EDT [facility] Alpha 1 Globulin (g/dL) 0.4 0.1 - 0.5 g/dL LAB CHEMISTRY METHOD 11/10/2024 8:11 AM EDT [facility] Alpha 2 Globulin (g/dL) 1.3 0.7 - 1.5 g/dL LAB CHEMISTRY METHOD 11/10/2024 8:11 AM EDT [facility] Beta (g/dL) 1.0 0.7 - 1.5 g/dL LAB CHEMISTRY METHOD 11/10/2024 8:11 AM EDT [facility] Gamma Globulin (g/dL) 1.3 0.7 - 1.9 g/dL LAB CHEMISTRY METHOD 11/10/2024 8:11 AM EDT [facility] SPEP Interpretation Essentially normal pattern. No M-Mon[place] seen. LAB CHEMISTRY METHOD 11/10/2024 8:11 AM EDT [facility] Blood Venous blood specimen / Unknown Venipuncture / Unknown 11/06/2024 12:26 PM EDT 11/06/2024 12:54 PM EDT Scarlett Dave MD LAB BLOOD ORDERABLES Final Res ult Performing Organization Address [facility]/ZIP Co de Phone Number [facility] [address] [place] [address], [place] [phone] * Protein, total (11/06/2024 12:26 PM EDT) [facility] Total Protein 7.5 6.0 - 8.0 g/dL LAB CHEMISTRY METHOD 11/06/2024 1:29 PM EDT [facility] Blood Venous blood specimen / Unknown Venipuncture / Unknown 11/06/2024 12:26 PM EDT 11/06/2024 12:54 PM EDT Scarlett Dave MD LAB BLOOD ORDERABLES Final Res ult [facility] [address] [place] [address], [place] [phone] * (ABNORMAL) [place]-lambda free light chains, with ratio,urine (11/06/2024 11:40 AM EDT) [place] Light Chain Free Urine 104.41(H) <=32.90 mg/L 11/10/2024 5:07 AM EDT [facility] Lambda Light Chain Free Urine 14.58(H) <=3.79 mg/L 11/10/2024 5:07 AM EDT [facility] [place] Lambda Ratio Free Urine 7.16 <=8.69 11/10/2024 5:07 AM EDT [facility] Comment: If free light chain results do not agree with other clinical or laboratory findings, repeat testing on a diluted sample to rule out antigen excess may be requested. Test Performed by [facility] [place], [email or web address], [address] [place] [address] Ivan Osborn M.D., Ph.D., Director of Laboratories , CLIA [id number] Urine Urine specimen from urethra / Unknown Non-blood Collection / Unknown 11/06/2024 11:40 AM EDT 11/06/2024 12:55 PM EDT us Scarlett Dave MD LAB URINE ORDERABLES Final Res ult [facility] [address] [place] [address] * Protein, urine, random (11/06/2024 11:40 AM EDT) Protein, Urine 53 mg/dL LAB CHEMISTRY METHOD 11/06/2024 1:21 PM EDT [facility] Urine Urine specimen obtained by clean catch procedure / Unknown Non-blood Collection / Unknown 11/06/2024 11:40 AM EDT 11/06/2024 12:55 PM EDT Narrative [facility] - 11/06/2024 1:21 PM EDT Protein too low to quantitate by electrophoresis. us Scarlett Dave MD LAB URINE ORDERABLES Final Res ult [facility] [address] [place] [address], [place] [phone] * Pathologist Review Immunofixation (11/06/2024 5:41 AM EDT) Pathologist Interpretation 11/10/2024 8:08 AM EDT [facility] Blood Venous blood specimen / Unknown Venipuncture / Unknown 11/06/2024 5:41 AM EDT 11/06/2024 7:04 AM EDT Scarlett Dave MD LAB BLOOD ORDERABLES Final Res ult [facility] [address] [place] [address], [place] [phone] * Immunofixation electrophoresis serum (11/06/2024 5:41 AM EDT) Pathologist [facility] Immunofixation Result, Serum No monoclonal immunoglobulins detected. LAB CHEMISTRY METHOD 11/10/2024 8:08 AM EDT [facility] Blood Venous blood specimen / Unknown Venipuncture / Unknown 11/06/2024 5:41 AM EDT 11/06/2024 7:04 AM EDT us Scarlett Dave MD LAB BLOOD ORDERABLES Final Res ult [facility] [address] [place] [address], [place] [phone] * Immunoglobulins IgG, IgA, IgM (11/06/2024 5:41 AM EDT) Total IgG 1,050 549 - 1,584 mg/dL LAB CHEMISTRY METHOD 11/06/2024 12:05 PM EDT [facility] IgA 169 61 - 348 mg/dL LAB CHEMISTRY METHOD 11/06/2024 12:05 PM [facility] IgM 65 23 - 259 mg/dL LAB CHEMISTRY METHOD 11/06/2024 12:05 PM [facility] Blood Venous blood specimen / Unknown Venipuncture / Unknown 11/06/2024 5:41 AM EDT 11/06/2024 7:04 AM EDT us Scarlett Dave MD LAB BLOOD ORDERABLES Final Res ult [facility] [address] [place] [address], * (ABNORMAL) Hepatic function panel (11/06/2024 5:41 AM EDT) Total Protein 7.2 6.0 - 8.0 g/dL LAB CHEMISTRY METHOD 11/06/2024 12:09 PM [facility] Albumin 3.5 3.2 - 5.0 g/dL LAB CHEMISTRY METHOD 11/06/2024 12:09 PM [facility] Total Bilirubin 0.3 0.0 - 1.4 mg/dL LAB CHEMISTRY METHOD 11/06/2024 12:09 PM [facility] Bilirubin, Direct 0.1 0.0 - 0.3 mg/dL LAB CHEMISTRY METHOD 11/06/2024 12:09 PM [facility] Bilirubin, Indirect 0.2 0.0 - 1.1 mg/dL LAB CHEMISTRY METHOD 11/06/2024 12:09 PM [facility] ALT (SGPT) 62(H) 10 - 60 unit/L LAB CHEMISTRY METHOD 11/06/2024 12:09 PM [facility] AST (SGOT) 41 10 - 42 unit/L LAB CHEMISTRY METHOD 11/06/2024 12:09 PM [facility] Alkaline Phosphatase 107 42 - 121 unit/L LAB CHEMISTRY METHOD 11/06/2024 12:09 PM EDT [facility] Blood Venous blood specimen / Unknown Venipuncture / Unknown 11/06/2024 5:41 AM EDT 11/06/2024 7:04 AM EDT us Scarlett Dave MD LAB BLOOD ORDERABLES Final Res ult [facility] [address] [place] [address], [place] [phone] * US Retroperitoneal Complete (11/04/2024 4:23 PM EDT) Anatomical Region Laterality Modality Body Ultrasound 11/04/2024 4:14 PM EDT Impressions 11/04/2024 4:14 PM EDT NO HYDRONEPHROSIS. -------- FINAL REPORT -------- Dictated By: Adama Villalobos Dictated Date: 11/04/2024 16:14 ET Assigned Physician: Adama Villalobos Reviewed and Electronically Signed By: Adama Villalobos Signed Date: 11/04/2024 16:14 ET Workstation ID: [id number] Transcribed By: Self Edit Transcribed Date: 11/04/2024 16:14 ET Narrative 11/04/2024 4:14 PM EDT PROCEDURE: US RETROPERITONEAL COMPLETE INDICATION: Renal failure, acute TECHNIQUE: 2-D rivas scale, color Doppler imaging of the kidneys. COMPARISON: No priors available. FINDINGS: Right kidney: Multiple cysts noted the largest in the lower pole measuring 3.3 cm. The right kidney measures 11.3cm. Left kidney: Multiple cysts. The largest in the upper pole measuring 5.6 cm. The left kidney measures 11.9cm. Unremarkable urinary bladder. Neither jet visualized. Procedure Note Adama Villalobos MD - 11/04/2024 PROCEDURE: US RETROPERITONEAL COMPLETE INDICATION: Renal failure, acute TECHNIQUE: 2-D rivas scale, color Doppler imaging of the kidneys. COMPARISON: No priors available. FINDINGS: Right kidney: Multiple cysts noted the largest in the lower pole measuring3.3 cm. The right kidney measures 11.3cm. Left kidney: Multiple cysts. The largest in the upper pole measuring 5.6cm. The left kidney measures 11.9cm. Unremarkable urinary bladder. Neither jet visualized. IMPRESSION: NO HYDRONEPHROSIS. -------- FINAL REPORT -------- Dictated By: Adama Villalobos Dictated Date: 11/04/2024 16:14 ET Assigned Physician: Adama Villalobos Reviewed and Electronically Signed By: Adama Villalobos Signed Date: 11/04/2024 16:14 ET Workstation ID: [id number] Transcribed By: Self Edit Transcribed Date: 11/04/2024 16:14 ET us Scarlett Dave MD [facility] US PROCEDURES Final Result * Culture sputum (11/04/2024 2:20 PM EDT) [facility] Culture, Sputum No pathogens isolated. 11/07/2024 9:49 AM EDT [facility] Gram Stain Result Moderate Polymorphonuclear leukocytes 11/07/2024 9:49 AM EDT [facility] Gram Stain Result Rare Epithelial cells 11/07/2024 9:49 AM EDT [facility] Gram Stain Result Few Mixed ban 11/07/2024 9:49 AM EDT [facility] Gram Stain Result Greater than 25 WBCS and less than 10 Epithelial cells - Acceptable for Culture 11/07/2024 9:49 AM EDT [facility] Sputum, expectorated Oropharyngeal structure / Unknown 11/04/2024 2:20 PM EDT 11/04/2024 3:42 PM EDT us Scarlett Dave MD LAB MICROBIOLOGY - GENERAL ORD ERABLES Final Result [facility] [address] [place] [address], [place] [phone] * (ABNORMAL) Urinalysis microscopic only (11/04/2024 10:53 AM EDT) RBC, Urine 14.0(H) 0 - 4 /HPF LAB URINALYSIS - AUTOMATED METHOD 11/04/2024 11:45 AM EDT [facility] WBC, Urine 1.9 0 - 4 /HPF LAB URINALYSIS - AUTOMATED METHOD 11/04/2024 11:45 AM T [facility] Squamous Epithelial, Urine 17 0 - 60 /LPF LAB URINALYSIS - AUTOMATED METHOD 11/04/2024 11:45 AM EDT [facility] Bacteria, Urine Negative Negative /HPF LAB URINALYSIS - AUTOMATED METHOD 11/04/2024 11:45 AM [facility] Hyaline Casts, Urine 5.2(H) 0 - 3 /LPF LAB URINALYSIS - AUTOMATED METHOD 11/04/2024 11:45 AM [facility] Urine Urine specimen obtained by clean catch procedure / Unknown Non-blood Collection / Unknown 11/04/2024 10:53 AM EDT 11/04/2024 11:13 AM EDT us Scarlett Dave MD LAB URINE ORDERABLES Final Res ult [facility] [address] [place] [address], [place] [phone] * (ABNORMAL) Urinalysis with reflex microscopic and culture (11/04/2024 10:53 AM EDT) Pathologist [facility] Specific [place] Urine 1.021 1.003 - 1.030 LAB URINALYSIS - AUTOMATED METHOD 11/04/2024 11:45 AM T [facility] pH, Urine 5.0 5.0 - 8.0 pH LAB URINALYSIS - AUTOMATED METHOD 11/04/2024 11:45 AM [facility] Leukocytes, Urine Negative Negative LAB URINALYSIS - AUTOMATED METHOD 11/04/2024 11:45 AM EDT [facility] Nitrite, Urine Negative Negative LAB URINALYSIS - AUTOMATED METHOD 11/04/2024 11:45 AM [facility] Protein, Urine 30(A) <=Trace mg/dL LAB URINALYSIS - AUTOMATED METHOD 11/04/2024 11:45 AM [facility] Glucose, Urine Negative Negative mg/dL LAB URINALYSIS - AUTOMATED METHOD 11/04/2024 11:45 AM [facility] Ketones, Urine Trace(A) Negative mg/dL LAB URINALYSIS - AUTOMATED METHOD 11/04/2024 11:45 AM [facility] Urobilinogen, Urine 1.0 0.2 - 1.0 mg/dL LAB URINALYSIS - AUTOMATED METHOD 11/04/2024 11:45 AM [facility] Bilirubin, Urine Negative Negative LAB URINALYSIS - AUTOMATED METHOD 11/04/2024 11:45 AM [facility] Blood, Urine Trace(A) Negative LAB URINALYSIS - AUTOMATED METHOD 11/04/2024 11:45 AM [facility] RBC, Urine 14.0(H) 0 - 4 /HPF LAB URINALYSIS - AUTOMATED METHOD 11/04/2024 11:45 AM [facility] WBC, Urine 1.9 0 - 4 /HPF LAB URINALYSIS - AUTOMATED METHOD 11/04/2024 11:45 AM [facility] Squamous Epithelial, Urine 17 0 - 60 /LPF LAB URINALYSIS - AUTOMATED METHOD 11/04/2024 11:45 AM [facility] Bacteria, Urine Negative Negative /HPF LAB URINALYSIS - AUTOMATED METHOD 11/04/2024 11:45 AM [facility] Hyaline Casts, Urine 5.2(H) 0 - 3 /LPF LAB URINALYSIS - AUTOMATED METHOD 11/04/2024 11:45 AM [facility] Urine Urine specimen obtained by clean catch procedure / Unknown Non-blood Collection / Unknown 11/04/2024 10:53 AM EDT 11/04/2024 11:13 AM EDT Skip Marcial Ruiz LAB URINE ORDERABLES Lisa l Result Performing Organization Address [facility]/ZIP Co de Phone Number [facility] [address] [place] [address], [place] [phone] * Rivas urine culture tube (11/04/2024 10:53 AM EDT) Extra Tube Hold for add-ons. 11/04/2024 1:01 PM EDT [facility] Comment:Auto resulted. Urine Urine specimen obtained by clean catch procedure / Unknown Non-blood Collection / Unknown 11/04/2024 10:53 AM EDT 11/04/2024 11:13 AM EDT [facility] LAB URINE ORDERABLES Lisa l Result Performing Organization Address [facility] de Phone Number [facility] [address] [place] [address], [place] [phone] * Legionella antigen urine, EIA (11/04/2024 10:53 AM EDT) Legionella Antigen, Ur Negative Negative 11/04/2024 12:01 PM EDT [facility] Urine Urine specimen obtained by clean catch procedure / Unknown Non-blood Collection / Unknown 11/04/2024 10:53 AM EDT 11/04/2024 11:12 AM EDT Narrative [facility] - 11/04/2024 12:01 PM EDT Negative for Legionella pneumophilia serogroup 1 antigen. This presumptive result suggests no current or recent infection due to L. pneumophilia serogroup 1. Culture is recommended if Legionella infection is till suspected, as other serogroups and species of Legionella are not detected by this test. Florentin ANDERSON LAB URINE ORDERABLES Final Res ult Performing Organization Address City/[facility]/ZIP Co de Phone Number [facility] [address] [place] [address], [place] [phone] * Sodium, urine, random (11/04/2024 10:53 AM EDT) Sodium, Ur 36 mmol/L LAB CHEMISTRY METHOD 11/04/2024 11:40 AM EDT [facility] Urine Urine specimen obtained by clean catch procedure / Unknown Non-blood Collection / Unknown 11/04/2024 10:53 AM EDT 11/04/2024 11:12 AM EDT Scarlett Dave MD LAB URINE ORDERABLES Final Res ult Performing Organization Address [facility] Co de Phone Number [facility] [address] [place] [address], * Creatinine, urine, random (11/04/2024 10:53 AM EDT) Creatinine, Urine 267.0 mg/dL LAB CHEMISTRY METHOD 11/04/2024 11:48 AM EDT [facility] Urine Urine specimen from urethra / Unknown Non-blood Collection / Unknown 11/04/2024 10:53 AM EDT 11/04/2024 11:12 AM EDT Scarlett Dave MD LAB URINE ORDERABLES Final Res ult Performing Organization Address [facility]/ZIP Co de Phone Number [facility] [address] [place] [address], * (ABNORMAL) Venous blood gas (11/03/2024 4:29 PM EDT) pH, Jayson 7.34 7.32 - 7.42 pH 11/03/2024 4:35 PM EDT [facility] pCO2, Jayson 37(L) 41 - 51 mmHg 11/03/2024 4:35 PM EDT [facility] pO2, Jayson 53(H) 25 - 40 mmHg 11/03/2024 4:35 PM EDT [facility] HCO3, Venous 20.4(L) 22.0 - 26.0 mmol/L 11/03/2024 4:35 PM EDT [facility] O2 Sat, Jayson 84.1 % 11/03/2024 4:35 PM EDT [facility] Base Excess, Jayson -5.2(L) -2.0 - 2.0 mmol/L 11/03/2024 4:35 PM EDT [facility] Blood Venous blood specimen / Unknown Venipuncture / Unknown 11/03/2024 4:29 PM EDT 11/03/2024 4:32 PM EDT us Kelly Ruiz DO LAB BLOOD ORDERABLES Lisa l Result [facility] [address] [place] [address], * ECG 12 lead (11/03/2024 4:23 PM EDT) Only the most recent of2 resultswithin the time period is included. Ventricular Rate ECG 122 BPM [facility] Atrial Rate 156 BPM [facility] P-R Interval 182 ms [facility] QRS Duration 86 ms [facility] Q-T Interval 270 ms GEM[facility] QTc 384 ms GEMUSE P Wave Dingle -2 degrees GEMUSE R Dingle 65 degrees GEMUSE T Dingle -6 degrees GEMUSE ECG Interpretation Atrial fibrillation Abnormal ECG When compared with ECG of 03-NOV-2024 14:43, (unconfirmed) No significant change was found Confirmed by Tarsha MAIER YUFENG ([id number]) on 11/04/2024 7:00:31 PM [facility] 11/03/2024 4:23 PM EDT 11/04/2024 7:00 PM EDT us Aguila Pike MD ECG ORDERABLES Final Result Performing Organization Address [facility]/ZIP Co de Phone Number [facility] * Troponin I high sensitivity (11/03/2024 3:46 PM EDT) Only the most recent of2 resultswithin the time period is included. High Sensitivity Troponin I 18 <=79 ng/L LAB CHEMISTRY METHOD 11/03/2024 4:37 PM EDT [facility] Blood Venous blood specimen / Unknown Venipuncture / Unknown 11/03/2024 3:46 PM EDT 11/03/2024 4:11 PM EDT Narrative [facility] - 11/03/2024 4:37 PM EDT High levels of biotin in samples may falsely decrease hsTroponin values. Use caution when interpreting hsTroponin results in patients taking biotin who exhibit renal impairment (eGFR <60) or in patients taking more than 20 mg/day of biotin. us Aguila Pike MD LAB BLOOD ORDERABLES Final Resu lt Performing Organization Address [facility] de Phone Number [facility] [address] [place] [address], [place] [phone] * XR Chest 1 View (11/03/2024 3:39 PM EDT) Anatomical Region Laterality Modality Body Radiographic Cyndi ging 11/03/2024 4:39 PM EDT Impressions 11/03/2024 4:40 PM EDT FINDINGS/IMPRESSION: There are reticulonodular opacities in the right lower lobe concerning for acute infectious or inflammatory process. No consolidation or congestive heart failure. -------- FINAL REPORT -------- Dictated By: Adama Villalobos Dictated Date: 11/03/2024 16:39 ET Assigned Physician: Adama Villalobos Reviewed and Electronically Signed By: Adama Villalobos Signed Date: 11/03/2024 16:40 ET Workstation ID: [id number] Transcribed By: Self Edit Transcribed Date: 11/03/2024 16:39 ET Narrative 11/03/2024 4:40 PM EDT XR CHEST 1 VIEW INDICATION: pain TECHNIQUE: XR CHEST 1 VIEW COMPARISON: No priors available. Procedure Note Adama Villalobos MD - 11/03/2024 XR CHEST 1 VIEW INDICATION: pain TECHNIQUE: XR CHEST 1 VIEW COMPARISON: No priors available. IMPRESSION: FINDINGS/IMPRESSION: There are reticulonodular opacities in the rightlower lobe concerning for acute infectious or inflammatory process. Noconsolidation or congestive heart failure. -------- FINAL REPORT -------- Dictated By: Adama Villalobos Dictated Date: 11/03/2024 16:39 ET Assigned Physician: Adama Villalobos Reviewed and Electronically Signed By: Adama Villalobos Signed Date: 11/03/2024 16:40 ET Workstation ID: [id number] Transcribed By: Self Edit Transcribed Date: 11/03/2024 16:39 ET Aguila Pike MD IMG XR PROCEDURES Final Result * Respiratory virus panel molecular study (11/03/2024 3:11 PM EDT) Adenovirus Detection by PCR Not Detected Not Detected LAB MICROBIOLOGY METHOD 11/03/2024 4:59 PM EDT [facility] Influenza A PCR Not Detected Not Detected LAB MICROBIOLOGY METHOD 11/03/2024 4:59 PM EDT [facility] Influenza B PCR Not Detected Not Detected LAB MICROBIOLOGY METHOD 11/03/2024 4:59 PM EDT [facility] Coronavirus 229E Not Detected Not Detected LAB MICROBIOLOGY METHOD 11/03/2024 4:59 PM EDT [facility] Coronavirus HKU1 Not Detected Not Detected LAB MICROBIOLOGY METHOD 11/03/2024 4:59 PM EDT [facility] Coronavirus OC43 Not Detected Not Detected LAB MICROBIOLOGY METHOD 11/03/2024 4:59 PM EDT [facility] Coronavirus NL63 Not Detected Not Detected LAB MICROBIOLOGY METHOD 11/03/2024 4:59 PM EDT [facility] Parainfluenza Virus 1 Not Detected Not Detected LAB MICROBIOLOGY METHOD 11/03/2024 4:59 PM EDT [facility] Parainfluenza Virus 2 Not Detected Not Detected LAB MICROBIOLOGY METHOD 11/03/2024 4:59 PM EDT [facility] Parainfluenza Virus 3 Not Detected Not Detected LAB MICROBIOLOGY METHOD 11/03/2024 4:59 PM EDT [facility] Parainfluenza Virus 4 Not Detected Not Detected LAB MICROBIOLOGY METHOD 11/03/2024 4:59 PM EDT [facility] RSV PCR Not Detected Not Detected LAB MICROBIOLOGY METHOD 11/03/2024 4:59 PM EDT [facility] Human Metapneumovirus A and B Not Detected Not Detected LAB MICROBIOLOGY METHOD 11/03/2024 4:59 PM EDT [facility] Rhinovirus/Entero virus Not Detected Not Detected LAB MICROBIOLOGY METHOD 11/03/2024 4:59 PM EDT [facility] Bordetella pertussis Not Detected Not Detected LAB MICROBIOLOGY METHOD 11/03/2024 4:59 PM EDT [facility] Bordetella parapertussis Not Detected Not Detected LAB MICROBIOLOGY METHOD 11/03/2024 4:59 PM EDT [facility] Mycoplasma pneumo by PCR Not Detected Not Detected LAB MICROBIOLOGY METHOD 11/03/2024 4:59 PM EDT [facility] Chlamydia pneumoniae Not Detected Not Detected LAB MICROBIOLOGY METHOD 11/03/2024 4:59 PM EDT [facility] SARS COV-2 Not Detected Not Detected LAB MICROBIOLOGY METHOD 11/03/2024 4:59 PM EDT [facility] Swab Nasopharyngeal structure / Unknown Non-blood Collection / Unknown 11/03/2024 3:11 PM EDT 11/03/2024 4:07 PM EDT Narrative [facility] - 11/03/2024 4:59 PM EDT Testing was performed using the [employer] Respiratory Pathogen PCR Assay. All results must be correlated with the clinical findings. Results should not be used as the sole basis for diagnosis. False Negative results may occur from the presence of sequence variants in the region targeted by the assay or the presence of inhibitors. Results may be affected by concurrent antiviral/antimicrobial therapy or levels of organisms that are below the limit of detection. us Kelly Ceja Cosmo Joseph DO LAB MICROBIOLOGY - GENERA L ORDERABLES Final Result [facility] [address] [place] [address], * [id number], RSV, Influenza A and B qualitative RT-PCR (11/03/2024 3:11 PM EDT) Influenza A PCR Not Detected Not Detected LAB MICROBIOLOGY METHOD 11/03/2024 4:20 PM EDT [facility] Influenza B PCR Not Detected Not Detected LAB MICROBIOLOGY METHOD 11/03/2024 4:20 PM EDT [facility] RSV PCR Not Detected Not Detected LAB MICROBIOLOGY METHOD 11/03/2024 4:20 PM EDT [facility] SARS COV-2 Not Detected Not Detected LAB MICROBIOLOGY METHOD 11/03/2024 4:20 PM EDT [facility] Swab Both anterior nares / Unknown Non-blood Collection / Unknown 11/03/2024 3:11 PM EDT 11/03/2024 3:27 PM EDT Narrative [facility] - 11/03/2024 4:20 PM EDT Disclaimer: Testing was performed using the [employer] GeneXpert Xpress SARS-CoV-2 _Flu_RSV PLUS PCR assay. The manner in which this information is used to guide patient care is the responsibility of the healthcare provider. Results should be correlated with the clinical history, epidemiological data, and other data available to the clinician evaluating the patient. Negative results do not preclude infection. This test has been authorized by the FDA under an Emergency Use Authorization (EUA). This test is only authorized for the duration of time the declaration that circumstances exist justifying the authorization of the emergency use of in vitro diagnostic tests for detection of SARS-CoV-2 virus and/or diagnosis of COVID-19 infection under section 564 (b) (1) of the Act, 21 U.S.C 360bbb-3 (b) (1), unless the authorization is terminated or revoked sooner. Reference Range: Not Detected Fact sheet for Healthcare providers can be found at https://www.fda.gov/media/909151/download. Fact sheet for Healthcare patients can be found at https://www.fda.gov/media/244027/download. Aguila Pike MD LAB MICROBIOLOGY - GENERAL MARY RODRIGUEZ Final Result Performing Organization Address [facility]/ZIP Co de Phone Number [facility] [address] [place] [address], * Thyroid stimulating hormone with reflex to free t4 and free t3 (11/03/2024 2:58 PM EDT) [facility] TSH 2.32 0.40 - 4.00 mcIU/mL LAB CHEMISTRY METHOD 11/03/2024 8:25 PM EDT [facility] Blood Venous blood specimen / Unknown Venipuncture / Unknown 11/03/2024 2:58 PM EDT 11/03/2024 3:11 PM EDT Florentin ANDERSON LAB BLOOD ORDERABLES Final Res ult Performing Organization Address [facility]/ZIP Co de Phone Number [facility] [address] [place] [address], * (ABNORMAL) Procalcitonin (11/03/2024 2:58 PM EDT) Pathologist [facility] Procalcitonin 0.75(H) <=0.16 ng/mL LAB CHEMISTRY METHOD 11/04/2024 8:57 AM EDT [facility] Blood Venous blood specimen / Unknown Venipuncture / Unknown 11/03/2024 2:58 PM EDT 11/03/2024 3:11 PM EDT Narrative [facility] - 11/04/2024 8:57 AM EDT Procalcitonin > 2.00 ng/ml: Procalcitonin Levels above 2.00 ng/ml, on the first day of ICU admission represent a high risk for progression to severe sepsis and/or septic shock. Procalcitonin < 0.50 ng/ml: Procalcitonin levels below 0.50 ng/ml on the first day of ICU admission represent a low risk for progression to severe sepsis and/or septic shock. Concentrations <0.5 ng/mL do not exclude an infection, on account of local ized infections (without systemic signs) which can be associated with such low concentrations, or a systemic infection in its initial stages (<6 hours). Furthermore, increased procalcitonin can occur without infection. PCT concentrations between 0.5 and 2.0 ng/mL should be interpreted taking into account the patient's history. It is recommended to retest PCT within 6-24 hours if any concentrations <2.0 ng/mL are obtained. us Dilip Pina MD LAB BLOOD ORDERABLES Final Result [facility] [address] [place] [address], * B-type natriuretic peptide (11/03/2024 2:58 PM EDT) BNP 66 <=100 pcg/mL LAB CHEMISTRY METHOD 11/03/2024 3:47 PM EDT [facility] Blood Venous blood specimen / Unknown Venipuncture / Unknown 11/03/2024 2:58 PM EDT 11/03/2024 3:10 PM EDT us Aguila Pike MD LAB BLOOD ORDERABLES Final Resu lt Performing Organization Address [facility]/ZIP Co de Phone Number [facility] [address] [place] [address], [place] [phone] * Lipase (11/03/2024 2:58 PM EDT) Lipase 75 13 - 75 unit/L LAB CHEMISTRY METHOD 11/03/2024 3:41 PM EDT [facility] Blood Venous blood specimen / Unknown Venipuncture / Unknown 11/03/2024 2:58 PM EDT 11/03/2024 3:11 PM EDT us Aguila Pike MD LAB BLOOD ORDERABLES Final Resu lt Performing Organization Address [facility]/ZIP Co de Phone Number [facility] [address] [place] [address], [place] [phone] * (ABNORMAL) Comprehensive metabolic panel (11/03/2024 2:58 PM EDT) Sodium 139 133 - 145 mmol/L LAB CHEMISTRY METHOD 11/03/2024 3:41 PM [facility] Potassium 4.8 3.5 - 5.5 mmol/L LAB CHEMISTRY METHOD 11/03/2024 3:41 PM [facility] Chloride 106 96 - 110 mmol/L LAB CHEMISTRY METHOD 11/03/2024 3:41 PM [facility] CO2 23 21 - 32 mmol/L LAB CHEMISTRY METHOD 11/03/2024 3:41 PM [facility] Anion Gap 10 3 - 11 LAB CHEMISTRY METHOD 11/03/2024 3:41 PM [facility] Glucose 131(H) 70 - 100 mg/dL LAB CHEMISTRY METHOD 11/03/2024 3:41 PM [facility] BUN 54(H) 5 - 25 mg/dL LAB CHEMISTRY METHOD 11/03/2024 3:41 PM [facility] Creatinine 2.66(H) 0.70 - 1.30 mg/dL LAB CHEMISTRY METHOD 11/03/2024 3:41 PM [facility] eGFR 25(L) >=60 mL/min/1. 73m2 LAB CHEMISTRY METHOD 11/03/2024 3:41 PM [facility] Comment:Calculation based on the Chronic Kidney Disease Epidemiology Collaboration (CKD-EPI) equation refit without adjustment for race. BUN/Creatinine Ratio 20.3 LAB CHEMISTRY METHOD 11/03/2024 3:41 PM [facility] Calcium 9.4 8.5 - 10.5 mg/dL LAB CHEMISTRY METHOD 11/03/2024 3:41 PM [facility] AST (SGOT) 45(H) 10 - 42 unit/L LAB CHEMISTRY METHOD 11/03/2024 3:41 PM [facility] ALT (SGPT) 46 10 - 60 unit/L LAB CHEMISTRY METHOD 11/03/2024 3:41 PM [facility] Alkaline Phosphatase 146(H) 42 - 121 unit/L LAB CHEMISTRY METHOD 11/03/2024 3:41 PM [facility] Total Protein 8.1(H) 6.0 - 8.0 g/dL LAB CHEMISTRY METHOD 11/03/2024 3:41 PM [facility] Albumin 3.8 3.2 - 5.0 g/dL LAB CHEMISTRY METHOD 11/03/2024 3:41 PM [facility] Total Bilirubin 1.0 0.0 - 1.4 mg/dL LAB CHEMISTRY METHOD 11/03/2024 3:41 PM [facility] Blood Venous blood specimen / Unknown Venipuncture / Unknown 11/03/2024 2:58 PM EDT 11/03/2024 3:11 PM EDT us Aguila Pike MD LAB BLOOD ORDERABLES Final Resu lt [facility] [address] [place] [address], * CT Chest wo Contrast (Lung-RADS F/U) (11/02/2024 10:21 AM EDT) Anatomical Region Laterality Modality Body Computed Tomogra phy 11/02/2024 10:5 0 AM EDT Impressions 11/02/2024 11:17 AM EDT Lung RADS 2S. Guidelines recommend repeat low-dose screening CT in 12 months. 1. Improved small airways mucus plugging in the inferolateral right upper lobe. 2. Increased small airways mucus plugging in the right lower lobe and right middle lobe. 3. S designation for a low-attenuation liver lesion which appears stable but is incompletely characterized on noncontrast chest CT. A dedicated multiphasic MRI of the liver is again recommended. This will also further characterize multifocal nodularity of the right adrenal gland. -------- FINAL REPORT -------- Dictated By: Rishabh Young Dictated Date: 11/02/2024 10:50 ET Assigned Physician: Rishabh Young Reviewed and Electronically Signed By: Rishabh Young Signed Date: 11/02/2024 11:17 ET Workstation ID: [id number] Transcribed By: Self Edit Transcribed Date: 11/02/2024 10:50 ET Narrative 11/02/2024 11:17 AM EDT PROCEDURE: Low-dose CT of the chest without intravenous contrast. TECHNIQUE: Low-dose CT of the chest without intravenous contrast administration. Coronal and sagittal reformats and MIP reconstructions were created. Dose length product: 182 mGy-cm. HISTORY: Lung screening followup, RUL nodular opacities COMPARISON: 08/03/2024. FINDINGS: Lungs/pleura: Aspirated debris in the trachea and right mainstem bronchus. Mild multifocal segmental bronchiectasis, most prominent in the lower lobes. Mild biapical pleural-parenchymal scarring. Mild centrilobular and paraseptal emphysema. Persistent but improved centrilobular groundglass nodularity in the inferolateral right upper lobe. Grossly unchanged peripheral interstitial scarring in the right lower lobe, with increasing multifocal centrilobular groundglass nodules consistent with small airways mucus plugging. There is also increased small airways mucus plugging in the right middle lobe. Stable elongated nodular opacity suggestive of a mucoid impacted segmental bronchus in the lingula. No pleural effusion or pneumothorax. Mediastinum/elo: No mediastinal mass or lymphadenopathy. No appreciable hilar lymphadenopathy on limited noncontrast evaluation. Vasculature: Normal caliber pulmonary arteries. Moderate atherosclerotic calcifications of the great vessels. Cardiac: Normal heart size. Mild aortic annular and coronary artery calcification. Chest wall: No axillary or supraclavicular lymphadenopathy. Limited abdomen: Bilateral renal cortical cysts. Stable multifocal nodularity of the left adrenal gland. Stable nonspecific 5.1 x 4.1 cm low-attenuation lesion in the central left hepatic lobe. Bones: Mild degenerative changes of the spine and shoulders. Procedure Note Rishabh Young MD - 11/02/2024 PROCEDURE: Low-dose CT of the chest without intravenous contrast. TECHNIQUE: Low-dose CT of the chest without intravenous contrastadministration. Coronal and sagittal reformats and MIP reconstructionswere created. Dose length product: 182 mGy-cm. HISTORY: Lung screening followup, RUL nodular opacities COMPARISON: 08/03/2024. FINDINGS: Lungs/pleura: Aspirated debris in the trachea and right mainstem bronchus.Mild multifocal segmental bronchiectasis, most prominent in the lowerlobes. Mild biapical pleural-parenchymal scarring. Mild centrilobularand paraseptal emphysema. Persistent but improved centrilobulargroundglass nodularity in the inferolateral right upper lobe. Grosslyunchanged peripheral interstitial scarring in the right lower lobe, withincreasing multifocal centrilobular groundglass nodules consistent withsmall airways mucus plugging. There is also increased small airways mucusplugging in the right middle lobe. Stable elongated nodular opacitysuggestive of a mucoid impacted segmental bronchus in the lingula. Nopleural effusion or pneumothorax. Mediastinum/elo: No mediastinal mass or lymphadenopathy. No appreciablehilar lymphadenopathy on limited noncontrast evaluation. Vasculature: Normal caliber pulmonary arteries. Moderate atheroscleroticcalcifications of the great vessels. Cardiac: Normal heart size. Mild aortic annular and coronary arterycalcification. Chest wall: No axillary or supraclavicular lymphadenopathy. Limited abdomen: Bilateral renal cortical cysts. Stable multifocalnodularity of the left adrenal gland. Stable nonspecific 5.1 x 4.1 cmlow-attenuation lesion in the central left hepatic lobe. Bones: Mild degenerative changes of the spine and shoulders. IMPRESSION: Lung RADS 2S. Guidelines recommend repeat low-dose screening CT in 12months. 1. Improved small airways mucus plugging in the inferolateral right upperlobe. 2. Increased small airways mucus plugging in the right lower lobe andright middle lobe. 3. S designation for a low-attenuation liver lesion which appears stablebut is incompletely characterized on noncontrast chest CT. A dedicatedmultiphasic MRI of the liver is again recommended. This will also furthercharacterize multifocal nodularity of the right adrenal gland. -------- FINAL REPORT -------- Dictated By: Rishabh Young Dictated Date: 11/02/2024 10:50 ET Assigned Physician: Rishabh Young Reviewed and Electronically Signed By: Rishabh Young Signed Date: 11/02/2024 11:17 ET Workstation ID: [id number] Transcribed By: Self Edit Transcribed Date: 11/02/2024 10:50 ET Shayna ANDERSON IM CT PROCEDURES Final Resul t * CT Lung Screening (08/03/2024 9:20 AM EST) Anatomical Region Laterality Modality Chest Computed Tomogra phy 08/05/2024 5:15 PM EST Impressions 08/05/2024 5:36 PM EST Multiple groundglass and nodular opacities throughout the inferior aspect of the right upper lobe suspicious for an infectious/inflammatory process. Lung RADS 0-incomplete. Recommend repeat exam in 4-6 weeks after treatment of any potential infectious etiologies. Heterogeneous left posterior liver lesion, incompletely characterized on this exam. Multiple indeterminant right adrenal nodules. Abdominal MRI without and with contrast recommended to better characterize these findings. A copy of this report will be provided to the [facility] Program. -------- FINAL REPORT -------- Dictated By: SAMMIE WEI Dictated Date: 08/05/2024 17:15 ET Assigned Physician: SAMMIE WEI Reviewed and Electronically Signed By: SAMMIE WEI Signed Date: 08/05/2024 17:36 ET Workstation ID: [id number] Transcribed By: Self Edit Transcribed Date: 08/05/2024 17:15 ET Narrative 08/05/2024 5:36 PM EST PROCEDURE: Chest CT INDICATION: Lung cancer screening, former smoker, 54 pack year smoking history TECHNIQUE: Chest CT without contrast. Multi planar reformats were created and interpreted. The examination was performed utilizing dose reduction techniques. Total DLP 180 COMPARISON: No priors available. FINDINGS: LUNGS/PLEURA: Central airways are patent. Moderate emphysema. Patchy groundglass and nodular opacities are seen throughout the inferior aspect of the right upper lobe. Elevated left diaphragm with left basilar atelectasis. No pleural effusion or pneumothorax. Biapical pleural-parenchymal scarring. MEDIASTINUM: Thyroid gland is unremarkable. No mediastinal or hilar lymphadenopathy. Left greater than right atrial dilation. No pericardial effusion. Esophagus is normal. CHEST WALL: No axillary lymphadenopathy or superficial hematoma. UPPER ABDOMEN:Bilateral renal cysts. Hepatic steatosis. 5 cm heterogeneous lesion in the left posterior liver, not well assessed on this exam. Multiple indeterminant right adrenal nodules measuring higher than 10 Hounsfield units. BONES: No acute fracture. Scattered degenerative changes seen throughout the bones. Micah Reyes MD IMG CT PROCEDURES Final Result from Last 3 Months or Most Recently Relevant to Health Maintenance Insurance MEDICARE MEDICAID - [place] Advance Directives * No CPR/Do Not Intubate (Latest Code Status on File) Date Activated Date Inactivated Comments 11/06/2024 11:01 AM 11/08/2024 7:[address] atus was ascertained in the following way: Code status discussion: discussion with patient * Full Code - Default Date Activated Date Inactivated Comments 11/03/2024 6:45 PM 11/06/2024 11:01 AM This is ord er is used when code status has not been discussed with the patient, or code status is otherwise unknown/unconfirmed To update the patient's code status, place a code status order. Do not modify or discontinue any currently active code status orders. Care Teams Judge'S Clerk Relationship Specialty Start Date End Date Nita Harrison MD [address] [place] [id number] PCP - General Internal Medicine 08/28/21
== END 2024-12-13 14:52 | disposition home or self-care (01) ==
LOC: HO.HMCFM 13:59
PROVIDERS: PCP Internal Medicine; Visit Provider Internal Medicine
DX: Z09 Encounter for follow-up examination after completed treatment for conditions other than malignant neoplasm (principal); F33.41 Major depressive disorder, recurrent, in partial remission; I48.0 Paroxysmal atrial fibrillation; Q85.83 Von Hippel-Lindau syndrome

== ENCOUNTER → 2024-12-13 13:58 | Outpatient (BNVA) | payer MEDICARE, MEDICAID, SELFPAY | PROVIDERS: PCP Internal Medicine; Visit Provider Internal Medicine | DX: Z09 Encounter for follow-up examination after completed treatment for conditions other than malignant neoplasm (principal); F33.41 Major depressive disorder, recurrent, in partial remission; I48.0 Paroxysmal atrial fibrillation; I12.9 Hypertensive chronic kidney disease with stage 1 through stage 4 chronic kidney disease, or unspecified chronic kidney disease; N18.30 Chronic kidney disease, stage 3 unspecified; J43.9 Emphysema, unspecified; J96.11 Chronic respiratory failure with hypoxia; Z79.01 Long term (current) use of anticoagulants; Z79.899 Other long term (current) drug therapy; Q85.83 Von Hippel-Lindau syndrome; Z13.31 Encounter for screening for depression | CPT/HCPCS: 96127; 99212 ==

== ENCOUNTER 2025-04-12 10:45 | Outpatient (REF) | payer MEDICARE, MEDICAID, SELFPAY ==
[2025-04-12 14:19] LABS: MANUAL DIFF FLAG NO
[2025-04-12 14:22] LABS: Hematocrit 47.6 % (42.0-52.0); Hemoglobin 15.0 g/dl (14.0-18.0); Imm Gran Abs Auto 0.08 X10*3/uL (0.00-0.03); Imm Gran Pct Auto 1.0 % (0.0-0.4); Lymphocytes Absolute Auto 0.8 X10*3/uL (1.2-4.9); Mean Corpuscular HGB Conc 31.5 g/dl (31.0-36.0); Mean Corpuscular Hemoglobin 26.6 pg (27.0-33.0); Mean Corpuscular Volume 84.4 fL (80.0-98.0); NRBC Abs Auto 0.000 X10*3/uL (0.0-0.012); NRBC Pct Auto 0.0 /100WBC (0.0-0.2); Platelet Count 160 X10*3/uL (160-400); Red Blood Count 5.64 X10*6/uL (4.60-5.80); White Blood Count 8.1 X10*3/uL (4.8-10.8)
[2025-04-12 14:49] LABS: Alanine Aminotransferase 24 U/L (0-40); Albumin Level 4.6 g/dL (3.5-5.0); Alkaline Phosphatase 137 U/L (39-117); Anion Gap 11 (12-20); Aspartate Amino Transferase 25 U/L (5-37); Blood Urea Nitrogen 27 mg/dL (9-16); Calcium 9.7 mg/dL (8.4-10.2); Carbon Dioxide 26 mmol/L (22-29); Chloride 106 mmol/L (96-108); Estimated Glomerular Filt Rate 51; Potassium 4.4 mmol/L (3.3-5.1); Sodium 139 mmol/L (135-145); Total Protein 7.5 g/dL (6.5-8.0)
[2025-04-12 15:01] LABS: Prostate Specific Antigen 0.27 ng/mL (<0.05-4.0)
== END 2025-04-12 10:46 | disposition home or self-care (01) ==
LOC: HO.WFDLDS 10:45
PROVIDERS: PCP Internal Medicine; Visit Provider Internal Medicine
DX: I48.0 Paroxysmal atrial fibrillation (principal); Q85.83 Von Hippel-Lindau syndrome; R94.6 Abnormal results of thyroid function studies; R73.03 Prediabetes; R19.7 Diarrhea, unspecified; N18.30 Chronic kidney disease, stage 3 unspecified; Z12.5 Encounter for screening for malignant neoplasm of prostate; Z23 Encounter for immunization
CPT/HCPCS: 36415; 80053; 83036; 84153; 84443; 85025; 86376; 90471; 90656; 99212

== ENCOUNTER 2025-04-12 10:45 | Outpatient (AMB) | payer MEDICARE, MEDICAID, SELFPAY ==
--- NOTE | 2025-04-12 10:52 | A.OFFPC_ITS ---
Vital Signs 04/12/25 10:54 Height 5 ft 8.11 in Weight 204 lb 4 oz BMI 31.0 BP 112/64 Blood Pressure Location Rt brachial Position Sitting Respiration 16 Pulse 83 Pulse Source Pulse Oximeter Temp 97.4 F Pulse Oximetry (%) 94 Oxygen Delivery Method Nasal Cannula Oxygen Flow Rate 2 Intake Visit Reasons: follow up Intake Note: Folllow up Machine Setter Automatic Required: No Allergies No Known Allergies (No Known Allergies*) Allergy (Verified 04/12/25 10:52) Tobacco use date assessed: 08/10/24 Dental Screening Dental Screen Date: 12/13/24 HPI HPI Comments History of Present Illness Details The patient is a 74-year-old male with a past history hypertension, paroxysmal atrial fibrillation, depression and anxiety, dyslipidemia, COPD with emphysema complicated by chronic hypoxemic respiratory failure on 2 L O2, on nonischemic cardiomyopathy, chronic daily diarrhea and von Hippel-Lindau syndrome who presents for follow up GI: In the setting of a 6 month history of diarrhea in 2022 the patient was hospitalized and underwent an extensive workup which included a CT abdomen and pelvis which showed pneumatosis colon and 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 He underwent MRCP and GI was consulted. MRCP showed focal biliary dilation. No mass lesion was delineated. Ductal dilation isolated segment of the left lower liver with some debris within the left lobe. LFTs unremarkable. Recommended against ERCP by GI. Colonoscopy with normal pathology and biopsy. Saw Dr Barron-repeated MRI-no interval change CV: Follows with [facility]. BP controlled. He has a follow up appt in May. On eliquis, lipitor 40 mg daily, lopressor. His lisinopril had been held during October hospitalization but this was restarted at 2.5mg daily. Denies chest pain, shortness breath. Nephro: CKD stage 3. Pulmonary: Chronic hypoxemic respiratory failure on therapy. On trelegy Follows with Dr Chen. Damico. Upcoming appt Apr 15 Prediabetes-Last A1C 6.1%. Will repeat today BH: On sertraline, mirtazapine and hydroxyzine as needed. Follows with [facility]. Follows with [facility]. Colonoscopy 2022 Will get flu vaccine today ROS CONSTITUTIONAL: Denies weight loss, fever and chills. HEENT: Denies changes in vision and hearing. RESPIRATORY: Denies SOB and cough. CV: Denies palpitations and CP GI: Denies abdominal pain, nausea, vomiting and diarrhea. : Denies dysuria and urinary frequency. MSK: Denies new myalgia and joint pain. SKIN: Denies rash and pruritus. NEUROLOGICAL: Denies headache PSYCHIATRIC: Denies recent changes in mood. PHYSICAL EXAM: GENERAL: Alert and oriented x 3. NAD EYES: EOMI. Anicteric. HENT: Moist mucous membranes. No scleral icterus. No cervical lymphadenopathy. LUNGS: Coarse bs right, scattered wheeze b/l CARDIOVASCULAR: Regular rate and rhythm. No murmur. No JVD. ABDOMEN: Soft, non-tender +bs EXTREMITIES: No edema. Non-tender. SKIN: No rashes or lesions. Warm. NEUROLOGIC: No focal neurological deficits. CN II-XII grossly intact PSYCHIATRIC: Cooperative. Appropriate mood and affect [facility] Medical History VHL (von Hippel-Lindau syndrome) Smoking hx Seasonal allergies Obesity, Class I, BMI 30.0-34.9 (see actual BMI) Macular degeneration Emphysema lung Dilation of common bile duct Depression Chronic kidney disease Afib Anxiety Abnormal gall bladder diagnostic imaging Surgical History H/O colonoscopy Social History Housing: Apartment Alcohol intake: current Patient Tobacco Use Status: Former Tobacco user Cigarette Packs Per Day: 3 Years Smoked: 50 e-Cigarette/Vaping Use: Never Used Second Hand Smoke Exposure: No service: No Current occupational status: retired Cognitive needs: No Hearing needs: No Vision needs: Yes (legally blind) Questionnaire Thrive Questionnaire Date Thrive assessed: 08/10/24 JAMES-7 AMB Questionnaire JAMES-7 Date JAMES - 7 assessed: 03/09/24 Source: Developed by Drs. Néstor Slaughter, Isa Cullen, Kareem Alejandre and colleagues, with an educational elma from [employer]. Physical exam (Primary Care) Vital Signs: Last Vital Signs Temp 97.4 F 04/12/25 10:54 Pulse 83 04/12/25 10:54 Resp 16 04/12/25 10:54 BP 112/64 04/12/25 10:54 Pulse Ox 94 04/12/25 10:54 Oxygen Delivery Method Nasal Cannula 04/12/25 10:54 Oxygen Flow Rate 2 04/12/25 10:54 BMI result Body Mass Index 31.0 Tobacco/Smoking Status: Tobacco use Status Tobacco use date assessed 08/10/24 04/12/25 10:54 Patient Tobacco Use Status Former Tobacco user 04/12/25 10:59 e-Cigarette/Vaping Use Never Used 04/12/25 10:59 Thrive Assessment: Date of Thrive Assessment Date Thrive assessed 08/10/24 04/12/25 10:54 Office Procedures Flu Questionnaire Does the patient have a severe egg allergy?: No Does the patient have severe life threatening allergies?: No Does the patient have a fever or illness today?: No Has the patient ever had Guillain-[place] Syndrome?: No Has the patient ever had any past reaction to a flu shot?: No Immunizations Fluarix [id number] (PF) 45 mcg (15 mcg x 3)/0.5 mL IM syringe Performing Provider: Nita Harrison MD Performing Location: [facility] Administered by: Tatiana Conroy CMA on 04/12/25 11:41 Dose Route Admin Location Dispensed Lot Number Expiration Date [facility] [employer] Developer 0.5 mL IM Left Deltoid 0.5 mL [id number] 12/06/25 [id number] [employer] VIS Given Date VIS Provided VIS Publication Date 04/12/25 Single Vaccine 24 Eligibility Eligibility Date Funding Source Not [facility] Eligible 04/12/25 Private Coding Level of Care Code Est Pt Level 4 (79601) Complex EM visit Add On G2211 Diagnoses VHL (von Hippel-Lindau syndrome) Q85.83 Paroxysmal atrial fibrillation I48.0 Atrial fibrillation type: paroxysmal Prediabetes R73.03 Stage 3 chronic kidney disease, unspecified whether stage 3a or 3b CKD N18.30 Chronic kidney disease stage: stage 3 (moderate) Chronic kidney disease stage 3 subtype: unspecified whether 3a or 3b Assessment & Plan Assessment & Plan (1) VHL (von Hippel-Lindau syndrome): Code(s): Q85.83 - Von Hippel-Lindau syndrome Category: Medical (2) Afib: Code(s): I48.91 - Unspecified atrial fibrillation Category: Medical Qualifiers: Atrial fibrillation type: paroxysmal Qualified Code(s): I48.0 - Paroxysmal atrial fibrillation (3) Prediabetes: Code(s): R73.03 - Prediabetes Category: Medical (4) Chronic kidney disease: Code(s): N18.9 - Chronic kidney disease, unspecified Category: Medical Qualifiers: Chronic kidney disease stage: stage 3 (moderate) Chronic kidney disease stage 3 subtype: unspecified whether 3a or 3b Qualified Code(s): N18.30 - Chronic kidney disease, stage 3 unspecified Plan 74 year old male presenting for follow up Interval history reviewed Chronic medical conditions are stable. Labs ordered Depression is stable on current regimen Blood pressure is well controlled on current medications. Low salt diet Colonoscopy UTD Orders: Orders TSH reflex Free T4 Today I48.0 - Paroxysmal atrial fibrillation, N18.9 - Chronic kidney disease, unspecified, Q85.83 - Von Hippel-Lindau syndrome, R73.03 - Prediabetes, R94.6 - Abnormal results of thyroid function studies Hemoglobin A1c Today I48.0 - Paroxysmal atrial fibrillation, N18.9 - Chronic kidney disease, unspecified, Q85.83 - Von Hippel-Lindau syndrome, R73.03 - Prediabetes, R94.6 - Abnormal results of thyroid function studies Complete Blood Count Auto Diff Today I48.0 - Paroxysmal atrial fibrillation, N18.9 - Chronic kidney disease, unspecified, Q85.83 - Von Hippel-Lindau syndro me, R73.03 - Prediabetes, R94.6 - Abnormal results of thyroid function studies Influenza [id number] Immunization Today Z23 - Encounter for immunization Thyroid Peroxidase Antibodies Today I48.0 - Paroxysmal atrial fibrillation, N18.9 - Chronic kidney disease, unspecified, Q85.83 - Von Hippel-Lindau syndrome, R73.03 - Prediabetes, R94.6 - Abnormal results of thyroid function studies Comprehensive Met. Panel Today I48.0 - Paroxysmal atrial fibrillation, N18.9 - Chronic kidney disease, unspecified, Q85.83 - Von Hippel-Lindau syndrome, R73.03 - Prediabetes, R94.6 - Abnormal results of thyroid function studies Prostate Specific Antigen Today I48.0 - Paroxysmal atrial fibrillation, N18.9 - Chronic kidney disease, unspecified, Q85.83 - Von Hippel-Lindau syndrome, R73.03 - Prediabetes, R94.6 - Abnormal results of thyroid function studies
[2025-04-12 10:54] VITALS: BP 112/64; PULSE 83; RESP 16; TEMP 36.3; O2SAT 94; BMI 31.0
--- OUTSIDE RECORDS SUMMARY | 2025-04-12 12:51 | XMS_ITS | Clinical Summary ---
Author Organization [address] [facility] Address [address] [place] [address] Phone Care Team Providers Care Cruise Guide Name Role Phone Nita Harrison MD Primary Care Provider [phone] Allergies No known active allergies Medications apixaban [...] (two) times a day. 60 each 2 Active magnesium, amino acid chelate, 133 mg tablet Take 1 tablet (133 mg total) by mouth 2 (two) times a day. 50 mg Active Active Problems Problem Noted Date Diagnosed Date Pneumonia of right lower lobe due to infectious organism 11/08/2024 Hypertension 12/17/2021 Cardiomyopathy ([facility] V24, [facility] V28) 2021 Overview (04/07/2024): Last Assessment & Plan: Echocardiogram while hospitalized for A. fib disclosed mildly reduced left ventricular systolic function. This is highly suspicious for a tachycardia induced cardiomyopathy. Nonetheless given his risk factors I do think that some evaluation for coronary artery disease and ischemia is warranted. We will make arrangements for pharmacologic nuclear stress test. AAA (abdominal aortic aneurysm) ([facility] V24) Overview (04/07/2024): Last Assessment & Plan: [...] to 6 months. Atrial fibrillation with RVR ([facility] V24, [facility] V28) 09/20/2021 Overview (04/07/2024): Last [...] most recent creatinine was 1.1. COPD exacerbation ([facility] V24, [facility] V28) Dyspnea 09/20/2021 Overview (04/07/2024): Last Assessment & Plan: Longstanding emphysema now on home oxygen. He has not had regular follow-up with pulmonary. Will arrange for this to be done. Resolved Problems Problem Noted Date Diagnosed Date Resolved Date Acute hypoxemic respiratory failure ([facility] V24, [facility] V28) 11/03/2024 11/08/2024 Encounters Date Type Department Care Team Description 01/12/2025 9:45 AM EDT Office Visit Pulmonology - [address] [place] [address] Kelly Moyer MD Chronic obstructive pulmonary disease, unspecified COPD type ([facility] V24, [facility] V28) (Primary Dx); Hypoxemia from Last 3 Months Immunizations Immunization Administration Dates Next Due Influenza Quadravalent, 0.5m [...] History Medical History Date Comments COPD exacerbation ([facility] V24, [facility] V28) DX:COPD exacerbation (HCC) Dyspnea DX:Dyspnea Essential hypertension DX:Essent ial hypertension HLD (hyperlipidemia) Atrial fibrillation ([facility] V24, [facility] V28) Cardiomyopathy ([facility] V24, [facility] V28) AAA (abdominal aortic aneurysm) ([facility] V24) History of tobacco use Family History Medical History Relation Name Comments Lung cancer Neg Hx Social History Tobacco Use Types Packs/Day Years Used Date Smoking Tobacco: Former Cigarettes 1 53 1 2019 Smokeless Tobacco: Former Tobacco Cessation:Counseling Given: [...] Safety Answer Date Record ed Physical Abuse Unrecognized value 11/03/2024 Verbal Abuse Unrecognized value 11/03/2024 Sex and Gender Information Value Date Recorded Sex Assigned at Male 07/30/2024 8:24 AM EST Legal Sex Male 6:26 PM EST Gender Identity Male 07/30/2024 8:24 AM EST Sexual Orientation Not on file Obstetrics History Last Filed Vital Signs Vital Sign Reading Time Taken Comments Blood Pressure 108/64 01/12/2025 9:55 AM EDT Pulse 72 01/12/2025 9:55 AM EDT Temperature 36.3 C (97.4 F) 01/12/2025 9:55 AM EDT Respiratory Rate 20 01/12/2025 9:55 AM EDT Oxygen Saturation 96% 01/12/2025 9:55 AM EDT Inhaled Oxygen Concentration - - Weight 85.3 kg (188 lb) 01/12/2025 9:55 AM EDT Height 175.3 cm (5' 9 ) 01/12/2025 9:55 AM EDT Body Mass Index 27.76 01/12/2025 9:55 AM EDT Plan of Treatment Upcoming Encounters Date Type Department Care Team (Late st Contact Info) Description 04/15/2025 10:30 AM EST Office Visit Pulmonology - [place] [address] [place] [address] Kelly Moyer MD [place] [address] Health Maintenance Due Date Last Done Comments Colorectal Cancer Screening: Colonoscopy 1950 RSV Immunization Adult Patients (1 - Risk 50-74 years 1-dose series) 09/22/2001 Zoster Vaccines (1 of 2) 09/22/2001 Cholesterol Screening (Lipid Panel) 05/19/2022 Hepatitis C Screening 05/19/2022 Medicare Annual Wellness Visit 05/19/2022 Depression Screening 06/09/2024 COVID-19 Vaccine ( season) 2025 04/03/2023, 04/09/2021, 09/26/2020, Additional history exists Influenza [...] Procedure Name Priority Date/Time Associated Diagnosis Comments BASIC METABOLIC PANEL Routine 11/08/2024 5:[address] LUNG SCREENING Routine 08/03/2024 9:2 0 AM EST Encounter for screening for lung cancer History of tobacco use from Last 3 Months or Most Recently Relevant to Health Maintenance Results * (ABNORMAL) Basic metabolic panel (11/08/2024 5:52 AM EDT) Sodium 135 133 - 145 mmol/L LAB CHEMISTRY METHOD 11/08/2024 8:10 AM [facility] Potassium 5.4 3.5 - 5.5 mmol/L LAB CHEMISTRY METHOD 11/08/2024 8:10 AM [facility] Chloride 101 96 - 110 mmol/L LAB CHEMISTRY METHOD 11/08/2024 8:10 AM [facility] CO2 30 21 - 32 mmol/L LAB CHEMISTRY METHOD 11/08/2024 8:10 AM [facility] Anion Gap 4 3 - 11 LAB CHEMISTRY METHOD 11/08/2024 8:10 AM [facility] Glucose 93 70 - 100 mg/dL LAB CHEMISTRY METHOD 11/08/2024 8:10 AM [facility] BUN 52(H) 5 - 25 mg/dL LAB CHEMISTRY METHOD 11/08/2024 8:10 AM EDT [facility] Creatinine 1.63(H) 0.70 - 1.30 mg/dL LAB CHEMISTRY METHOD 11/08/2024 8:10 AM EDT [facility] eGFR 44(L) >=60 mL/min/1. 73m2 LAB CHEMISTRY METHOD 11/08/2024 8:10 AM EDT [facility] Comment:Calculation based on the Chronic Kidney Disease Epidemiology Collaboration (CKD-EPI) equation refit without adjustment for race. BUN/Creatinine Ratio 31.9 LAB CHEMISTRY METHOD 11/08/2024 8:10 AM EDT [facility] Calcium 9.5 8.5 - 10.5 mg/dL LAB CHEMISTRY METHOD 11/08/2024 8:10 AM EDT [facility] Blood Venous blood specimen / Unknown Venipuncture / Unknown 11/08/2024 5:52 AM EDT 11/08/2024 6:16 AM EDT us Scarlett Dave MD LAB BLOOD ORDERABLES Final Res ult [facility] [address] [place] [address], * CT Lung Screening (08/03/2024 9:20 AM [...] this report will be provided to the [facility] Program. -------- FINAL REPORT -------- Dictated By: SAMMIE WEI Dictated Date: 08/05/2024 17:15 ET Assigned Physician: SAMMIE WEI Reviewed and Electronically Signed By: SAMMIE WEI Signed Date: 08/05/2024 17:36 ET Workstation ID: [id number] Transcribed By: Self Edit Transcribed Date: 08/05/2024 [...] Relevant to Health Maintenance Insurance MEDICARE MEDICAID [place] Advance Directives * No CPR/Do Not Intubate [...] currently active code status orders. Care Teams Cruise Guide Relationship Specialty Start Date End Date Nita Harrison MD [address] [place] [phone] PCP - General Internal Medicine 08/28/21
== END 2025-04-12 12:14 | disposition home or self-care (01) ==
LOC: HO.HMCFM 10:45
PROVIDERS: PCP Internal Medicine; Visit Provider Internal Medicine
DX: Q85.83 Von Hippel-Lindau syndrome (principal); I48.0 Paroxysmal atrial fibrillation; R73.03 Prediabetes; N18.30 Chronic kidney disease, stage 3 unspecified; Z23 Encounter for immunization